=== PATIENT | male | born 1960 | race Caucasian/White ===

== ENCOUNTER → 2016-10-20 | Outpatient (CLI) | payer OTHER ==
[2016-10-20 17:58] LABS: Basophils # (A) 0.1 k/uL (0-0.2); Basophils % (A) 1 %; CH 28.8; CHCM 32.8; Eosinophils # (A) 0.2 k/uL (0-0.7); Eosinophils % (A) 3 %; HCT 40.8 % (39.0-53.0); HDW 2.67; HGB 13.5 gm/dL (13.0-17.5); Luc # (Auto) 0.16; Luc % (Auto) 2; Lymphocytes # (A) 1.9 k/uL (1.0-4.8); Lymphocytes % (A) 25 %; MCH 29.3 pg (25.0-35.0); MCHC 33.2 g/dL (31.0-37.0); MCV 88.3 fL (80.0-100.0); Mean Platelet Volume 7.3; Monocytes # (A) 0.4 k/uL (0-1.0); Monocytes % (A) 6 %; Neutrophils # (A) 4.7 k/uL (1.3-7.7); Neutrophils % (A) 63 %; RBC 4.62 m/uL (4.30-5.90); RDW 13.6 % (11.5-15.5); WBC 7.4 k/uL (3.8-10.6); WBC (Perox) 7.74
[2016-10-20 18:03] LABS: Amorphous Sediment,Urine Rare /hpf; Appearance,Urine Cloudy (Clear); Bilirubin,Urine Negative (Negative); Glucose,Urine (UA) Negative (Negative); Ketones,Urine Negative (Negative); Leukocyte Esterase,Urine Trace (Negative); Mucus,Urine Rare /hpf; Nitrite,Urine Negative (Negative); PH, Urine 5.5 (5.0-8.0); Particle Count 2562; Protein,Urine Trace (Negative); RBC,Urine 49 /hpf (0-5); Specific Gravity,Urine 1.018 (1.001-1.035); Squamous Epithelial Cell,Urine 2 /hpf (0-4); UA Billing (MACRO vs. MICRO) MICRO; WBC,Urine 9 /hpf (0-5)
--- NOTE | 2016-10-20 18:09 | XR ---
EXAMINATION TYPE: XR chest 2V DATE OF EXAM: 10/20/2016 5:59 PM COMPARISON: 04/22/2016 HISTORY: Preop chest x-ray TECHNIQUE: Frontal and lateral views of the chest are obtained. FINDINGS: There is no heart failure nor confluent pneumonic infiltrate. There are no hilar masses. C ostophrenic angles are clear. Bony thorax is intact. IMPRESSION: No active cardiopulmonary disease. No change.
[2016-10-20 18:22] LABS: Anion Gap 7 mmol/L; Blood Urea Nitrogen 20 mg/dL (9-20); Calcium 9.5 mg/dL (8.4-10.2); Carbon Dioxide 29 mmol/L (22-30); Chloride 104 mmol/L (98-107); Glucose 123 mg/dL (74-99); Non-African American GFR(MDRD) >60 (>60 ml/min/1.73 sqM); Potassium 4.2 mmol/L (3.5-5.1); Sodium 140 mmol/L (137-145)
== END | disposition home or self-care (01) ==
LOC: LABPAT 17:12
PROVIDERS: ATTEND Urology
DX: Z01.818 Encounter for other preprocedural examination (principal); Z01.812 Encounter for preprocedural laboratory examination; Z79.899 Other long term (current) drug therapy; N20.0 Calculus of kidney; R35.0 Frequency of micturition; I50.9 Heart failure, unspecified
CPT/HCPCS: 71020; 80048; 81001; 85025; 87086

== ENCOUNTER 2016-10-27 05:57 | Observation (INO) | payer OTHER ==
[2016-10-25 10:18] VITALS: BMI 37.2
[~2016-10-27 05:57] MED LIST: DEXAMETHASONE SOD PHOSPHATE 10 MG/ML 1 ML VIAL IV ONE; MIDAZOLAM 2 MG/2 ML VIAL IV PRN; SCOPOLAMINE 1.5MG/72HR PATCH TRANSDERM ONE; ceFAZolin 2 GM in SODIUM CHLORIDE 0.9% 100 ML IVPB ONE
[2016-10-27 06:42] VITALS: RESP 16
[2016-10-27] MEDS ORDERED: LIDOCAINE 1% 20 ML VIAL (10MG/ML) FOR IV START INTRADERMA ONE (06:52)
[2016-10-27] MEDS: LACTATED RINGERS 1,000 ML IV SCH (06:52)
[2016-10-27] MEDS: ONDANSETRON 4 MG/2 ML VIAL IVP ONE ×2 (06:55→10:09)
[2016-10-27 06:57] LABS: Glucose,Whole Blood 146 mg/dL (75-99)
[2016-10-27] MEDS ORDERED: fentaNYL (PF) 50 MCG/ML 2 ML AMP ONE (07:25)
[2016-10-27] MEDS ORDERED: MIDAZOLAM 2 MG/2 ML VIAL ONE (07:25)
[2016-10-27] MEDS ORDERED: SUCCINYLCHOLINE CHLORIDE 100 MG/5 ML SYR IV ONE (07:25)
[2016-10-27] MEDS ORDERED: ROCURONIUM BROMIDE 10 MG/ML 10 ML VIAL IV ONE (07:25)
[2016-10-27] MEDS ORDERED: NEOSTIGMINE 1 MG/ML 10 ML VIAL ONE (07:25)
[2016-10-27] MEDS ORDERED: LIDOCAINE 1% INJ 10MG/ML (20 ML MDV) ONE (07:25)
[2016-10-27] MEDS ORDERED: SODIUM CHLORIDE 0.9% 50 ML with ceFAZolin 2,000 MG IV ONE ×2 (07:25)
[2016-10-27] MEDS ORDERED: PROPOFOL 10 MG/ML 20 ML VIAL IV ONE (07:25)
[2016-10-27] MEDS ORDERED: GLYCOPYRROLATE 0.2 MG/ML 2 ML VIAL ONE (07:25)
--- NOTE | 2016-10-27 07:27 | XR ---
EXAMINATION TYPE: XR KUB DATE OF EXAM: 10/27/2016 6:31 AM COMPARISON: 07/10/2016 INDICATION: Presurgical evaluation TECHNIQUE: Single view abdomen supine FINDINGS: There is a nonspecific bowel gas pattern. Abundant bowel gas through the transverse colon. Psoas margins are normal. No organomegaly is present. There is a 1.4 x 2.1 cm calcification over the right renal pelvic region. Left hip prosthesis present . Surgical clip may be within the pelvis. Cholecystectomy clips are present. IMPRESSION: 1. 1.4 x 2.1 cm calcification in the region of the right renal pelvis.
[2016-10-27] MEDS ORDERED: IOHEXOL 350 MG/ML 50ML BOTTLE IRRIGATION ONE (08:07)
[2016-10-27] MEDS ORDERED: LACTATED RINGERS 1,000 ML IV ONE (09:23)
--- NOTE | 2016-10-27 09:39 | FL ---
EXAMINATION TYPE: FL Perc Nephrostomy New Access DATE OF EXAM: 10/27/2016 9:35 AM COMPARISON: NONE HISTORY: Right renal stone Procedure had been discussed with the patient by Dr. López, risks, benefits, alternatives, were dis cussed and any questions were answered. Informed consent was obtained. The patient was in a semipro ne position prepped and draped on the OR table in the usual sterile fashion. Utilizing a 15 cm lengt h Chiba needle a single pass was made into a lower pole posterior calyx under fluoroscopic guidance. An 0.018 guidewire is passed through the needle and there was placement of a 6-Scottish catheter sheat h system. There was conversion to a 0.035 system was performed with passage of a guidewire into the ureter utilizing a directional catheter. A second safety wire was placed. Remaining portion of pro cedure performed by . Approximately 11 minutes and 36 of fluoroscopy was provided. IMPRESSION: 1. Successful intraoperative right nephrostomy prior to nephrolithotomy.
[2016-10-27] MEDS ORDERED: ALBUTEROL NEBULIZED 2.5 MG/3 ML INHALATION PRN (09:43)
[2016-10-27] MEDS ORDERED: ACETAMINOPHEN TAB 325 MG TAB PO PRN (09:43)
[2016-10-27] MEDS ORDERED: MAG HYDROX/AL HYDROX/SIMETH 30 ML CUP PO PRN (09:43)
[2016-10-27] MEDS ORDERED: NALOXONE 0.4 MG/ML 1 ML VIAL IV PRN (09:45)
[2016-10-27] MEDS ORDERED: HYDROmorphone PCA 5 MG/25 ML SYRINGE IV PRN (09:45)
[2016-10-27] MEDS ORDERED: ONDANSETRON 4 MG/2 ML VIAL IVP PRN (09:45)
[2016-10-27] MEDS ORDERED: diphenhydrAMINE 50 MG/ML 1 ML VIAL IVP PRN (09:45)
--- NOTE | 2016-10-27 09:52 | P.OP ---
Date of Procedure: 10/27/16 Preoperative Diagnosis: Renal stone large Postoperative Diagnosis: Same Procedure(s) Performed: Cystoscopy, placement of 5-Congolese occluding balloon catheter, percutaneous nephrostomy (Dr. wilson ) per cutaneous nephrostolithotomy with laser lithotripsy, placement of 12-Congolese J nephrostomy Anesthesia: BETTY Surgeon: Claude López Estimated Blood Loss (ml): 200 Pathology: other (Stones) Condition: stable Disposition: PACU Indications for Procedure: The patient is a 56-year-old gentleman with active kidney stone disease who has a 2.1 x 1.4 cm right lower pole calyceal stone causing pain he comes for percutaneous nephrostolithotomy Description of Procedure: The patient is brought to the operating suite and on the transport gurney placed in a frog position. He is given a successful general endotracheal anesthesia. He is prepped and draped sterilely. Cystoscopy of the Foroblique lens and 22-Congolese sheath identifies a normal anterior urethra and a high riding bladder neck. Upon entering the bladder the right ureteral orifice is identified and intubated with a 5-Congolese occluding balloon catheter. It is secured to a 16-Congolese coud-tip catheter. The patient is placed in a prone position with care to airways and extremities. Dr. Wilson of radiology performed percutaneous access to the right lower pole calyx. We dilate the tract to 30-Congolese. The infundibulum was scarred and tight. I'm unable to advance the rigid scope into identify the lower pole calyceal stone. I have to advance the sheath to the parenchyma the kidney and then pass a flexible nephroscope into the collecting system. I'm able to see the stone. With the 365 laser probe I break the stone into tiny fragments and then I basket them with a 1.9-Congolese stone basket. At the end of the procedure I looked throughout the collecting system and see no remaining stones. There is no stones on fluoroscopy. A 12-Congolese J nephrostomy tube was placed over the working wire and secured into the renal pelvis. It is secured with 2-0 silk. he is awake and returned recovery room good condition. He tolerated procedure well. Blood loss is approximately 200 mL.
[2016-10-27 09:58] LABS: Glucose,Whole Blood 177 mg/dL (75-99)
[2016-10-27] MEDS: HYDROmorphone 1 MG/ML 1 ML SYRINGE IVP PRN ×4 (10:01→10:27)
[2016-10-27] MEDS ORDERED: FAMOTIDINE 20 MG/2 ML VIAL IVP ONE ×2 (10:24)
[2016-10-27] MEDS: SODIUM CHLORIDE 0.45% 1,000 ML IV SCH ×2 (11:26→21:30)
[2016-10-27 11:42] LABS: Glucose,Whole Blood 188 mg/dL (75-99)
[2016-10-27] MEDS: KETOROLAC 30 MG/ML 1 ML VIAL IVP SCH ×3 (12:44→23:34)
[2016-10-27] MEDS: INSULIN LISPRO (humaLOG) 300 UNIT/3 ML VIAL SQ SCH ×3 (12:44→21:24)
[2016-10-27 20:01] LABS: Glucose,Whole Blood 170 mg/dL (75-99)
[2016-10-27] MEDS: FUROSEMIDE 40 MG TAB PO SCH (21:19)
[2016-10-28 02:11] VITALS: BP 129/64; PULSE 68; TEMP 98.1
[2016-10-28] MEDS: LACTATED RINGERS 1,000 ML IV SCH (03:58)
[2016-10-28] MEDS: KETOROLAC 30 MG/ML 1 ML VIAL IVP SCH (06:28)
[2016-10-28] MEDS: SODIUM CHLORIDE 0.45% 1,000 ML IV SCH (06:28)
--- NOTE | 2016-10-28 06:42 | P.DS ---
Providers Date of admission: 10/27/16 13:36 Attending physician: Claude López Primary care physician: Abel Guzmán Hospital Course: The patient was admitted 10/27/2016 for a right percutaneous nephrostolithotomy. He underwent this without any issues. Postoperatively he tolerated his diet and ambulated. His urine is clearing appropriately. He is having minimal discomfort. He'll be discharged home today. He'll go home with a nephrostomy tube and follow-up in the office on Tuesday for nephrostomy tube removal. He'll resume all his home medications except his Ellik was which she will hold until I removed the tube. Postoperative instructions of been given diet is regular, activities Limited ,condition is good. Patient Condition at Discharge: Good Plan - Discharge Summary Discharge Medication List metFORMIN HCL [Glucophage] 500 mg PO DAILY 06/25/14 [History] Albuterol Sulfate [Ventolin HFA] 2 puff INHALATION RT-Q6H PRN 07/10/14 [History] Apixaban [Eliquis] 5 mg PO BID tab 03/30/16 [Rx] Pantoprazole [Protonix] 40 mg PO AC-BRKFST #30 tablet. 03/30/16 [Rx] Calcium Carbonate [Calcium] 600 mg PO BID #60 tablet 04/08/16 [Rx] Multivitamin/Iron/Folic Acid [Centrum Complete Multivit Tab] 1 tab PO DAILY 12/17 [History] Vitamin A 8,000 unit PO DAILY #30 capsule 04/08/16 [Rx] Furosemide [Lasix] 40 mg PO BID 10/25/16 [History] Metoprolol Tartrate [Lopressor] 12.5 mg PO DAILY 10/25/16 [History] Follow up Appointment(s)/Referral(s): Claude López MD [STAFF PHYSICIAN] - 11/01/16 Activity/Diet/Wound Care/Special Instructions: The patient may shower, cover the dressing with plastic wrap or change the dressing. Hold Eliquis until I see him in the office.
[2016-10-28] MEDS ORDERED: metFORMIN 500 MG TAB PO SCH (07:30)
[2016-10-28] MEDS ORDERED: PANTOPRAZOLE 40 MG TABLET PO SCH (07:30)
[2016-10-28 07:33] LABS: Glucose,Whole Blood 152 mg/dL (75-99)
[2016-10-28] MEDS: INSULIN LISPRO (humaLOG) 300 UNIT/3 ML VIAL SQ SCH (07:49)
[2016-10-28] MEDS: FUROSEMIDE 40 MG TAB PO SCH (07:50)
[2016-10-28] MEDS ORDERED: METOPROLOL TARTRATE 12.5 MG TAB PO SCH (09:00)
[2016-10-28 13:10] LABS: Hemoglobin A1C 6.9 % (4.2-6.1)
== END 2016-10-28 11:05 | disposition home or self-care (01) ==
LOC: OR 05:57 → 3SUR 09:26 → OR 13:38
PROVIDERS: ADMIT Urology; ATTEND Urology
DX: N20.0 Calculus of kidney (principal); I48.91 Unspecified atrial fibrillation; I50.9 Heart failure, unspecified; F41.9 Anxiety disorder, unspecified; F17.210 Nicotine dependence, cigarettes, uncomplicated; Z83.3 Family history of diabetes mellitus; Z82.49 Family history of ischemic heart disease and other diseases of the circulatory system; Z90.49 Acquired absence of other specified parts of digestive tract; Z88.6 Allergy status to analgesic agent; Z79.84 Long term (current) use of oral hypoglycemic drugs; Z87.440 Personal history of urinary (tract) infections; Z79.899 Other long term (current) drug therapy; Z79.01 Long term (current) use of anticoagulants; Z98.84 Bariatric surgery status; Z88.8 Allergy status to other drugs, medicaments and biological substances; Z96.642 Presence of left artificial hip joint; E11.9 Type 2 diabetes mellitus without complications; K21.9 Gastro-esophageal reflux disease without esophagitis
CPT/HCPCS: 50080; 50395; 86900; 86901; 83036; 86850; 82365; 74000; 50432; G0378 ×2; C1769 ×4; C2628; C1894; C1729; J2250; J1100; J2710; J2405; J2001; J3010; J1885 ×2; J1170 ×2; J0690; J0330; J2704; Q9967; 96361; 96376

== ENCOUNTER → 2017-07-20 | Outpatient (CLI) | payer OTHER ==
[2017-07-20 15:08] VITALS: BP 147/67; PULSE 46; TEMP 98.6; BMI 41.5
== END ==
LOC: BARWHC3 14:16
PROVIDERS: ATTEND Surgery Plastic and Reconstructive Surgery
DX: E66.01 Morbid (severe) obesity due to excess calories (principal); E21.1 Secondary hyperparathyroidism, not elsewhere classified; D50.9 Iron deficiency anemia, unspecified; E44.0 Moderate protein-calorie malnutrition; E55.9 Vitamin D deficiency, unspecified; K74.1 Hepatic sclerosis; N19 Unspecified kidney failure; K50.90 Crohn's disease, unspecified, without complications
CPT/HCPCS: 97802; 99211

== ENCOUNTER 2019-08-21 05:52 | Inpatient (IN) | payer OTHER ==
[2019-08-21] MEDS ORDERED: SODIUM CHLORIDE 0.9% 1,000 ML IV STA (05:58)
--- NOTE | 2019-08-21 06:21 | ED ---
GI Bleed HPI - General Chief complaint: GI Bleed Stated complaint: GI Bleed Time Seen by Provider: 08/21/19 05:58 Source: patient, EMS, RN notes reviewed Mode of arrival: EMS Limitations: no limitations - History of Present Illness Initial comments: Taylor is a pleasant 59-year-old gentleman with history of A. fib for which he is on L Lena. Patient presents the emergency department this morning as a transfer from outside facility where he was evaluated for possible upper GI bleed. Patient reported dark stools, epigastric discomfort nausea without vomiting. Evaluation of thousand facility found the patient had guaiac positive melanotic stools, hemoglobin of 10.5 and was positive for orthostatic hypotension. Outside facility to have gastroenterology available for evaluation if her patient was transferred to our facility for further management. Patient remained hemodynamically stable throughout transfer. Upon arrival patient denies any complaints. Patient specifically denies any chest pain palpitations or shortness breath. He does report feeling lightheaded when he stood up at the outside hospital but feeling well resting. - Related Data Home Medications Medication Instructions Recorded Confirmed metFORMIN HCL [Glucophage] 500 mg PO DAILY 06/25/14 07/20/17 Albuterol Sulfate [Ventolin HFA] 2 puff INHALATION RT-Q6H PRN 07/10/14 07/20/17 Multivitamin/Iron/Folic Acid 1 tab PO DAILY 04/08/16 07/20/17 [Centrum Complete Multivit Tab] Furosemide [Lasix] 40 mg PO BID 10/25/16 07/20/17 Previous Rx's Medication Instructions Recorded Apixaban [Eliquis] 5 mg PO BID tab 03/30/16 Pantoprazole [Protonix] 40 mg PO AC-BRKFST #30 tablet.dr 03/30/16 Acetaminophen Tab [Tylenol] 650 mg PO Q6HR PRN tab 06/21/17 Aspirin 81 mg PO DAILY chew 06/21/17 Cyanocobalamin (Vitamin B-12) 1,000 mcg PO DAILY #30 tablet 06/21/17 [Vitamin B-12] Diltiazem Oral [Cardizem*] 60 mg PO TID #90 tab 06/21/17 Ergocalciferol [Vitamin D2 50,000 unit PO Q7D cap 06/21/17 (DRISDOL)] Ferrous Sulfate [Feosol] 325 mg PO DAILY #30 tab 06/21/17 Metoprolol Tartrate [Lopressor] 25 mg PO BID #60 tab 06/21/17 Vitamin A 8,000 unit PO DAILY #30 capsule 07/20/17 Zinc Gluconate [Zinc] 50 mg PO DAILY@1200 #60 tablet 07/20/17 Allergies Allergy/AdvReac Type Severity Reaction Status Date / Time lisinopril Allergy Unknown Dyspnea Verified 07/20/17 14:59 rofecoxib [From Vioxx] Allergy Unknown Dyspnea Verified 07/20/17 14:59 celecoxib [From Celebrex] Allergy Dyspnea Verified 07/20/17 14:59 POTASSIUM CITRATE Allergy Unknown Uncoded 07/20/17 14:59 Review of Systems ROS Statement: Those systems with pertinent positive or pertinent negative responses have been documented in the HPI. ROS Other: All systems not noted in ROS Statement are negative. Past Medical History Past Medical History: Atrial Fibrillation, Asthma, Heart Failure, COPD, Diabetes Mellitus, Pneumonia, Sleep Apnea/CPAP/BIPAP Additional Past Medical History / Comment(s): Gastric bypass surgery more than 10 years ago with significant weight loss, chronic bronchial asthma, COPD, diabetes mellitus type 2, chronic atrial fibrillation, ALLERGIC urticaria, obesity, nephrolithiasis, degenerative arthritis, hypertension, chronic microcytic anemia, degenerative arthritis, CHF History of Any Multi-Drug Resistant Organisms: None Reported Past Surgical History: Bariatric Surgery, Cholecystectomy, Hernia Repair, Joint Replacement Additional Past Surgical History / Comment(s): UPPP, gastric bypass surgery, cholecystectomy, umbilical hernia repair, left total hip replacement, left shoulder surgery. Past Anesthesia/Blood Transfusion Reactions: Previous Problems w/ Anesthesia Additional Past Anesthesia/Blood Transfusion Reaction / Comment(s): STATES DIFFICULTY WAKING UP "THEY OVERDOSED ME." Past Psychological History: No Psychological Hx Reported Smoking Status: Never smoker Past Alcohol Use History: None Reported Past Drug Use History: None Reported - Past Family History Mother Family Medical History: No Reported History General Exam - General Exam Comments Initial Comments: Physical Exam GENERAL: Patient is well-developed and well-nourished. Patient is nontoxic and well- hydrated and is in no distress. HENT: Normocephalic, Atraumatic. EYES: PERRL, EOMI No conjunctival pallor PULMONARY: Unlabored respirations. No audible rales rhonchi or wheezing was noted. CARDIOVASCULAR: There is a regular rate and rhythm without any murmurs gallops or rubs. ABDOMEN: Soft and nontender with normal bowel sounds. SKIN: Skin is clear with no lesions or rashes and otherwise unremarkable. Mild pallor : Deferred NEUROLOGIC: Patient is alert and oriented x3. Moving all extremities spontaneously MUSCULOSKELETAL: Normal extremities with adequate strength and full range of motion. No lower extremity swelling or edema. No calf tenderness. PSYCHIATRIC: Normal psychiatric evaluation. Limitations: no limitations Course Vital Signs 08/21/19 05:57 Temperature 99.4 F Pulse Rate 92 Respiratory 18 Rate Blood Pressure 116/100 O2 Sat by Pulse 99 Oximetry Medical Decision Making - Medical Decision Making Patient was seen and evaluated, history was obtained from the patient and transferring physician History and physical exam relatively unremarkable Repeat labs were obtained Initial hemoglobin outside facilities 10.5, hemoglobin is 10.1 here Patient's hemodynamically stable Patient has previously had endoscopy by Dr. Collier for evaluation of possible ulcers 3 years ago that endoscopy was negative Patient care was discussed with Dr. Meza who accepts admission with consult to Dr Castanon for endoscopy - Lab Data Result diagrams: 08/21/19 06:26 08/21/19 06:26 Lab Results 08/21/19 08/21/19 08/21/19 Range/Units 06:26 06:26 06:26 WBC 10.8 H (3.8-10.6) k/uL RBC 3.71 L (4.30-5.90) m/uL Hgb 10.1 L (13.0-17.5) gm/dL Hct 30.5 L (39.0-53.0) % MCV 82.2 (80.0-100.0) fL MCH 27.3 (25.0-35.0) pg MCHC 33.2 (31.0-37.0) g/dL RDW 14.8 (11.5-15.5) % Plt Count 315 (150-450) k/uL Neutrophils % 63 % Lymphocytes % 27 % Monocytes % 5 % Eosinophils % 3 % Basophils % 1 % Neutrophils # 6.8 (1.3-7.7) k/uL Lymphocytes # 2.9 (1.0-4.8) k/uL Monocytes # 0.5 (0-1.0) k/uL Eosinophils # 0.3 (0-0.7) k/uL Basophils # 0.1 (0-0.2) k/uL APTT (22.0-30.0) sec Sodium 134 L (137-145) mmol/L Potassium 4.6 (3.5-5.1) mmol/L Chloride 102 (98-107) mmol/L Carbon Dioxide 27 (22-30) mmol/L Anion Gap 5 mmol/L BUN 48 H (9-20) mg/dL Creatinine 0.70 (0.66-1.25) mg/dL Est GFR (CKD-EPI)AfAm >90 (>60 ml/min/1.73 sqM) Est GFR (CKD-EPI)NonAf >90 (>60 ml/min/1.73 sqM) Glucose 223 H (74-99) mg/dL Plasma Lactic Acid Bob 1.2 (0.7-2.0) mmol/L Calcium 8.7 (8.4-10.2) mg/dL Total Bilirubin 0.5 (0.2-1.3) mg/dL AST 26 (17-59) U/L ALT 28 (4-49) U/L Alkaline Phosphatase 93 (38-126) U/L Troponin I (0.000-0.034) ng/mL Total Protein 5.6 L (6.3-8.2) g/dL Albumin 3.2 L (3.5-5.0) g/dL Blood Type Blood Type Recheck Bld Type Recheck Status Antibody Screen Spec Expiration Date 08/21/19 08/21/19 08/21/19 Range/Units 06:26 06:26 06:26 WBC (3.8-10.6) k/uL RBC (4.30-5.90) m/uL Hgb (13.0-17.5) gm/dL Hct (39.0-53.0) % MCV (80.0-100.0) fL MCH (25.0-35.0) pg MCHC (31.0-37.0) g/dL RDW (11.5-15.5) % Plt Count (150-450) k/uL Neutrophils % % Lymphocytes % % Monocytes % % Eosinophils % % Basophils % % Neutrophils # (1.3-7.7) k/uL Lymphocytes # (1.0-4.8) k/uL Monocytes # (0-1.0) k/uL Eosinophils # (0-0.7) k/uL Basophils # (0-0.2) k/uL APTT 22.6 (22.0-30.0) sec Sodium (137-145) mmol/L Potassium (3.5-5.1) mmol/L Chloride (98-107) mmol/L Carbon Dioxide (22-30) mmol/L Anion Gap mmol/L BUN (9-20) mg/dL Creatinine (0.66-1.25) mg/dL Est GFR (CKD-EPI)AfAm (>60 ml/min/1.73 sqM) Est GFR (CKD-EPI)NonAf (>60 ml/min/1.73 sqM) Glucose (74-99) mg/dL Plasma Lactic Acid Bob (0.7-2.0) mmol/L Calcium (8.4-10.2) mg/dL Total Bilirubin (0.2-1.3) mg/dL AST (17-59) U/L ALT (4-49) U/L Alkaline Phosphatase (38-126) U/L Troponin I <0.012 (0.000-0.034) ng/mL Total Protein (6.3-8.2) g/dL Albumin (3.5-5.0) g/dL Blood Type A Positive Blood Type Recheck A Pos Bld Type Recheck Status No Antibody Screen NEGATIVE Spec Expiration Date 08/24/2019 - 4665 - EKG Data -: EKG Interpreted by Al EKG Comments: EKG was obtained due to complaint of anemia and history of atrial fibrillation, EKG was obtained at 5:59 AM, rate is 91 rhythm is narrow complex irregular but there is T-wave before each QRS, consistent with sinus rhythm with marked sinus arrhythmia. Normal axis normal intervals, WI 124, QRS 74, QTC [address] elevations or depressions no evidence of acute ischemia or infarction. Disposition Clinical Impression: Melena, Atrial fibrillation Disposition: ADMITTED IP TO THIS HOSP Condition: Serious Referrals: Malcolm Menjivar MD [Primary Care Provider] - 1-2 days
[2019-08-21 06:39] LABS: Basophils # (A) 0.1 k/uL (0-0.2); Basophils % (A) 1 %; Eosinophils # (A) 0.3 k/uL (0-0.7); Eosinophils % (A) 3 %; HCT 30.5 % (39.0-53.0); HGB 10.1 gm/dL (13.0-17.5); Lymphocytes # (A) 2.9 k/uL (1.0-4.8); Lymphocytes % (A) 27 %; MCH 27.3 pg (25.0-35.0); MCHC 33.2 g/dL (31.0-37.0); MCV 82.2 fL (80.0-100.0); Mean Platelet Volume 8.2; Monocytes # (A) 0.5 k/uL (0-1.0); Monocytes % (A) 5 %; Neutrophils # (A) 6.8 k/uL (1.3-7.7); Neutrophils % (A) 63 %; Platelet Count 315 k/uL (150-450); RBC 3.71 m/uL (4.30-5.90); RDW 14.8 % (11.5-15.5); WBC 10.8 k/uL (3.8-10.6)
[2019-08-21 06:51] LABS: ALT 28 U/L (4-49); AST 26 U/L (17-59); African American GFR (CKD) >90 (>60 ml/min/1.73 sqM); Albumin 3.2 g/dL (3.5-5.0); Alkaline Phosphatase 93 U/L (38-126); Anion Gap 5 mmol/L; Blood Urea Nitrogen 48 mg/dL (9-20); Calcium 8.7 mg/dL (8.4-10.2); Carbon Dioxide 27 mmol/L (22-30); Chloride 102 mmol/L (98-107); Glucose 223 mg/dL (74-99); Non-African American GFR(CKD) >90 (>60 ml/min/1.73 sqM); Potassium 4.6 mmol/L (3.5-5.1); Sodium 134 mmol/L (137-145); Total Bilirubin 0.5 mg/dL (0.2-1.3); Total Protein 5.6 g/dL (6.3-8.2)
[2019-08-21] MEDS ORDERED: NALOXONE 0.4 MG/ML 1 ML VIAL IV PRN (07:58)
[2019-08-21] MEDS ORDERED: SODIUM CHLORIDE 0.9% 1,000 ML IV SCH (08:00)
[2019-08-21] MEDS ORDERED: MORPHINE SULFATE 4 MG/ML SYRINGE IVP PRN (09:12)
[2019-08-21 09:31] LABS: Prothrombin Time 10.2 sec (9.0-12.0)
[2019-08-21 09:53] LABS: HCT 30.2 % (39.0-53.0); HGB 10.1 gm/dL (13.0-17.5); MCH 27.3 pg (25.0-35.0); MCHC 33.5 g/dL (31.0-37.0); MCV 81.6 fL (80.0-100.0); Mean Platelet Volume 8.6; Platelet Count 239 k/uL (150-450); RBC 3.71 m/uL (4.30-5.90); RDW 14.9 % (11.5-15.5); WBC 11.3 k/uL (3.8-10.6)
--- NOTE | 2019-08-21 15:04 | P.GSCN ---
<Salome Ramires A - Last Filed: 08/21/19 15:04> History of Present Illness Consult date: 08/21/19 Reason for Consult: Upper GI bleed Requesting physician: Elizabeth Vargas History of present illness: CHIEF COMPLAINT: Upper GI bleed HISTORY OF PRESENT ILLNESS: 59-year-old male with history of Sharona-en-Y gastric bypass performed in a bariatric clinic in [place] in 2001. Patient is a history of anemia and underwent EGD in June [address] Castanon that did not reveal any acute gastrojejunal ulcererations. Patient is prescribed Eliquis for history of afib. He states he is no longer taking aspirin but does report taking naproxen on occasion. Patient reports having dark stools for the past couple days. Denies bright red blood. Denies nausea or vomiting. Denies abdominal pain. PAST MEDICAL HISTORY: See list. PAST SURGICAL HISTORY: See list. MEDICATIONS: See list. ALLERGIES: See list. SOCIAL HISTORY: No illicit drug use. REVIEW OF SYSTEMS: CONSTITUTIONAL: Denies fever or chills. HEENT: Denies blurred vision, vision changes, or eye pain. Denies hemoptysis ENDOCRINE: Denies heat or cold intolerance. CARDIOVASCULAR: Denies chest pain or pressure. Reports history of A. fib. RESPIRATORY: No shortness of breath. GASTROINTESTINAL: History of Sharona-en-Y gastric bypass. See HPI for pertinent findings. NEURO: Denies history of seizures. PSYCH: No depression or suicidal ideation HEMATOLOGIC: Denies bleeding disorders. Prescribed long-term anticoagulation with Eliquis. LYMPHATIC: The patient denies any lumps and bumps around the neck. GENITOURINARY: Denies any blood in urine or increased urinary frequency. MUSCULOSKELETAL: Denies myalgias. Denies joint swelling. Denies decreased range of motion beyond patients baseline. SKIN: Denies pruitis. Denies rash. PHYSICAL EXAM: VITAL SIGNS: Reviewed GENERAL: Well-developed in no acute distress. HEENT: No sclera icterus. Extraocular movements grossly intact. Moist buccal mucosa. Head is atraumatic, normocephalic. Hears conversational speech. No nasal drainage. NECK: Supple without lymphadenopathy. CHEST: Non-labored respirations and equal bilateral excursions. CARDIOVASCULAR: Regular rate with regular rhythm. Palpable 2+ radial pulses. ABDOMEN: Soft. Nondistended. Nontender. MUSCULOSKELETAL: No clubbing, cyanosis or edema. NEUROLOGIC: No focal or lateralizing signs. Cranial nerves II through XII grossly intact. PSYCH: Appropriate affect. Alert and oriented to person, place and time. SKIN: Well perfused. Good skin turgor. LABORATORY DATA: WBC 10.8. Hemoglobin 10.1. Platelet count 315. ASSESSMENT: 1. GI bleed 2. History of Sharona-en-Y gastric bypass 3. History of atrial fibrillation on long-term anticoagulation with Eliquis PLAN: -Clear liquid diet. NPO at midnight -Monitor hemoglobin -Hold Eliquis. SCDs for DVT prophylaxis -Protonix 40 mg IV BID -Patient to undergo EGD tomorrow with Dr. Castanon -Obtain bariatric labs Nurse practitioner note has been reviewed by physician. Signing provider agrees with the documented findings, assessment, and plan of care. Past Medical History Past Medical History: Atrial Fibrillation, Asthma, Heart Failure, COPD, Diabetes Mellitus, Pneumonia, Sleep Apnea/CPAP/BIPAP Additional Past Medical History / Comment(s): Gastric bypass surgery more than 10 years ago with significant weight loss, chronic bronchial asthma, COPD, diabetes mellitus type 2, chronic atrial fibrillation, ALLERGIC urticaria, obesity, nephrolithiasis, degenerative arthritis, hypertension, chronic microcytic anemia, degenerative arthritis, CHF History of Any Multi-Drug Resistant Organisms: None Reported Past Surgical History: Bariatric Surgery, Cholecystectomy, Hernia Repair, Joint Replacement Additional Past Surgical History / Comment(s): UPPP, gastric bypass surgery, cholecystectomy, umbilical hernia repair, left total hip replacement, left shoulder surgery. Past Anesthesia/Blood Transfusion Reactions: Previous Problems w/ Anesthesia Additional Past Anesthesia/Blood Transfusion Reaction / Comm: STATES DIFFICULTY WAKING UP "THEY OVERDOSED ME." Past Psychological History: No Psychological Hx Reported Smoking Status: Never smoker Past Alcohol Use History: None Reported Past Drug Use History: None Reported - Past Family History Mother Family Medical History: No Reported History Medications and Allergies Home Medications Medication Instructions Recorded Confirmed Type Albuterol Sulfate [Ventolin HFA] 2 puff INHALATION RT-Q6H PRN 07/10/14 08/21/19 History Apixaban [Eliquis] 5 mg PO BID tab 03/30/16 08/21/19 Rx Multivitamin/Iron/Folic Acid 1 tab PO DAILY 04/08/16 08/21/19 History [Centrum Complete Multivit Tab] Furosemide [Lasix] 40 mg PO BID 10/25/16 08/21/19 History Diltiazem Oral [Cardizem*] 60 mg PO TID #90 tab 06/21/17 08/21/19 Rx Ferrous Sulfate [Feosol] 325 mg PO DAILY #30 tab 06/21/17 08/21/19 Rx Vitamin A 8,000 unit PO DAILY #30 capsule 07/20/17 08/21/19 Rx Ascorbic Acid [Vitamin C with Ivy 500 mg PO BID 08/21/19 08/21/19 History Hips] Calcium Carbonate/Vitamin D3 1 tab PO BID 08/21/19 08/21/19 History [Calcium 600-Vit D3 200 Tablet] Cyclobenzaprine [Flexeril] 10 mg PO TID 08/21/19 08/21/19 History Metolazone [Zaroxolyn] 2.5 mg PO Q48H 08/21/19 08/21/19 History Metoprolol Tartrate [Lopressor] 12.5 mg PO BID 08/21/19 08/21/19 History Nascobal 1 spray NASAL FR 08/21/19 08/21/19 History Omeprazole [PriLOSEC] 20 mg PO AC-BID 08/21/19 08/21/19 History Zinc Gluconate [Zinc] 50 mg PO DAILY 08/21/19 08/21/19 History glipiZIDE [Glucotrol] 5 mg PO AC-BID 08/21/19 08/21/19 History metFORMIN HCL 1,000 mg PO BID 08/21/19 08/21/19 History Allergies Allergy/AdvReac Type Severity Reaction Status Date / Time lisinopril Allergy Unknown Dyspnea Verified 08/21/19 09:11 rofecoxib [From Vioxx] Allergy Unknown Dyspnea Verified 08/21/19 09:11 celecoxib [From Celebrex] Allergy Dyspnea Verified 08/21/19 09:11 POTASSIUM CITRATE Allergy Unknown Uncoded 08/21/19 09:11 Surgical - Exam Vital Signs Temp Pulse Resp BP Pulse Ox 99.4 F 92 18 116/100 99 08/21/19 05:57 08/21/19 05:57 08/21/19 05:57 08/21/19 05:57 08/21/19 05:57 Results - Labs 08/21/19 09:35 08/21/19 06:26 Abnormal Lab Results - Last 24 Hours (Table) 08/21/19 08/21/19 08/21/19 Range/Units 06:26 06:26 09:35 WBC 10.8 H 11.3 H (3.8-10.6) k/uL RBC 3.71 L 3.71 L (4.30-5.90) m/uL Hgb 10.1 L 10.1 L (13.0-17.5) gm/dL Hct 30.5 L 30.2 L (39.0-53.0) % Sodium 134 L (137-145) mmol/L BUN 48 H (9-20) mg/dL Glucose 223 H (74-99) mg/dL Total Protein 5.6 L (6.3-8.2) g/dL Albumin 3.2 L (3.5-5.0) g/dL Diabetes panel 08/21/19 Range/Units 06:26 Sodium 134 L (137-145) mmol/L Potassium 4.6 (3.5-5.1) mmol/L Chloride 102 (98-107) mmol/L Carbon Dioxide 27 (22-30) mmol/L BUN 48 H (9-20) mg/dL Creatinine 0.70 (0.66-1.25) mg/dL Glucose 223 H (74-99) mg/dL Calcium 8.7 (8.4-10.2) mg/dL AST 26 (17-59) U/L ALT 28 (4-49) U/L Alkaline Phosphatase 93 (38-126) U/L Total Protein 5.6 L (6.3-8.2) g/dL Albumin 3.2 L (3.5-5.0) g/dL Calcium panel 08/21/19 Range/Units 06:26 Calcium 8.7 (8.4-10.2) mg/dL Albumin 3.2 L (3.5-5.0) g/dL Pituitary panel 08/21/19 Range/Units 06:26 Sodium 134 L (137-145) mmol/L Potassium 4.6 (3.5-5.1) mmol/L Chloride 102 (98-107) mmol/L Carbon Dioxide 27 (22-30) mmol/L BUN 48 H (9-20) mg/dL Creatinine 0.70 (0.66-1.25) mg/dL Glucose 223 H (74-99) mg/dL Calcium 8.7 (8.4-10.2) mg/dL Adrenal panel 08/21/19 Range/Units 06:26 Sodium 134 L (137-145) mmol/L Potassium 4.6 (3.5-5.1) mmol/L Chloride 102 (98-107) mmol/L Carbon Dioxide 27 (22-30) mmol/L BUN 48 H (9-20) mg/dL Creatinine 0.70 (0.66-1.25) mg/dL Glucose 223 H (74-99) mg/dL Calcium 8.7 (8.4-10.2) mg/dL Total Bilirubin 0.5 (0.2-1.3) mg/dL AST 26 (17-59) U/L ALT 28 (4-49) U/L Alkaline Phosphatase 93 (38-126) U/L Total Protein 5.6 L (6.3-8.2) g/dL Albumin 3.2 L (3.5-5.0) g/dL <Shawanda Castanon N - Last Filed: 08/21/19 21:26> History of Present Illness History of present illness: Patient family confirms taking NSAIDs such as Aleve at home. Clinical history highly suspicious for gastric ulcer. Will proceed with upper endoscopy. Surgical - Exam Vital Signs Temp Pulse Resp BP Pulse Ox 99.4 F 92 18 116/100 99 08/21/19 05:57 08/21/19 05:57 08/21/19 05:57 08/21/19 05:57 08/21/19 05:57 Results - Labs 08/21/19 16:46 08/21/19 06:26 Abnormal Lab Results - Last 24 Hours (Table) 08/21/19 08/21/19 08/21/19 Range/Units 06:25 06:26 06:26 WBC 10.8 H (3.8-10.6) k/uL RBC 3.71 L (4.30-5.90) m/uL Hgb 10.1 L (13.0-17.5) gm/dL Hct 30.5 L (39.0-53.0) % Sodium 134 L (137-145) mmol/L BUN 48 H (9-20) mg/dL Glucose 223 H (74-99) mg/dL POC Glucose (mg/dL) (75-99) mg/dL Total Protein 5.6 L (6.3-8.2) g/dL Albumin 3.2 L (3.5-5.0) g/dL HDL Cholesterol 34 L (40-60) mg/dL 08/21/19 08/21/19 08/21/19 Range/Units 09:35 16:46 20:15 WBC 11.3 H (3.8-10.6) k/uL RBC 3.71 L 3.35 L (4.30-5.90) m/uL Hgb 10.1 L 9.2 L (13.0-17.5) gm/dL Hct 30.2 L 27.7 L (39.0-53.0) % Sodium (137-145) mmol/L BUN (9-20) mg/dL Glucose (74-99) mg/dL POC Glucose (mg/dL) 214 H (75-99) mg/dL Total Protein (6.3-8.2) g/dL Albumin (3.5-5.0) g/dL HDL Cholesterol (40-60) mg/dL Diabetes panel 08/21/19 08/21/19 Range/Units 06:25 06:26 Sodium 134 L (137-145) mmol/L Potassium 4.6 (3.5-5.1) mmol/L Chloride 102 (98-107) mmol/L Carbon Dioxide 27 (22-30) mmol/L BUN 48 H (9-20) mg/dL Creatinine 0.70 (0.66-1.25) mg/dL Glucose 223 H (74-99) mg/dL Calcium 8.7 (8.4-10.2) mg/dL AST 26 (17-59) U/L ALT 28 (4-49) U/L Alkaline Phosphatase 93 (38-126) U/L Total Protein 5.6 L (6.3-8.2) g/dL Albumin 3.2 L (3.5-5.0) g/dL Triglycerides 140 (<150) mg/dL HDL Cholesterol 34 L (40-60) mg/dL Thyroid panel 08/21/19 Range/Units 06:25 TSH 2.680 (0.465-4.680) mIU/L Calcium panel 08/21/19 08/21/19 Range/Units 06:25 06:26 Calcium 8.7 (8.4-10.2) mg/dL Phosphorus 3.6 (2.5-4.5) mg/dL Albumin 3.2 L (3.5-5.0) g/dL Pituitary panel 08/21/19 08/21/19 Range/Units 06:25 06:26 Sodium 134 L (137-145) mmol/L Potassium 4.6 (3.5-5.1) mmol/L Chloride 102 (98-107) mmol/L Carbon Dioxide 27 (22-30) mmol/L BUN 48 H (9-20) mg/dL Creatinine 0.70 (0.66-1.25) mg/dL Glucose 223 H (74-99) mg/dL Calcium 8.7 (8.4-10.2) mg/dL TSH 2.680 (0.465-4.680) mIU/L Adrenal panel 08/21/19 Range/Units 06:26 Sodium 134 L (137-145) mmol/L Potassium 4.6 (3.5-5.1) mmol/L Chloride 102 (98-107) mmol/L Carbon Dioxide 27 (22-30) mmol/L BUN 48 H (9-20) mg/dL Creatinine 0.70 (0.66-1.25) mg/dL Glucose 223 H (74-99) mg/dL Calcium 8.7 (8.4-10.2) mg/dL Total Bilirubin 0.5 (0.2-1.3) mg/dL AST 26 (17-59) U/L ALT 28 (4-49) U/L Alkaline Phosphatase 93 (38-126) U/L Total Protein 5.6 L (6.3-8.2) g/dL Albumin 3.2 L (3.5-5.0) g/dL
[2019-08-21 15:28] LABS: Phosphorus 3.6 mg/dL (2.5-4.5)
[2019-08-21 15:33] LABS: Cholesterol 131 mg/dL (<200); HDL Cholesterol 34 mg/dL (40-60); LDL Cholesterol,Calculated 69 mg/dL (0-99); Triglycerides 140 mg/dL (<150)
--- NOTE | 2019-08-21 16:46 | P.HPIM ---
History of Present Illness H&P Date: 08/21/19 Chief Complaint: Melena 59-year-old male with PMH of atrial fibrillation on Eliquis, diabetes mellitus, hypertension, CHF sees Dr. Narvaez comes to the ED for melena. Patient states that he had a large bowel movement around 11:30 PM last night and the toilet bowl was full of dark red blood. Patient continued to have bloody bowel movements which prompted him to come to the ED. Patient states that he rarely uses NSAIDs. He does not have any alcohol intake. He denies any aspirin use. Patient complains of mild epigastric pain that is dull in nature and constant. Pain is 4 out of 10 in severity. Pain does not radiate. Patient denies any headache, lower extremity edema, nausea or vomiting, fever or chills, cough, chest pain, shortness of breath, palpitations, changes in urination or bowel habits. No changes in appetite or weight. He denies any dizziness, numbne ss/weakness/tingling of the extremities. In the ED, he was hemodynamically stable. CBC showed leukocytosis of 10.8 and hemoglobin of 10.1. Correlation panel was negative. CMP showed sodium of 134, BUN 48, glucose 223. Troponin was less than 0.012, EKG showing sinus rhythm with sinus arrhythmia. Lipid panel showed HDL of 34. TSH was within normal limits. Patient is admitted for GI bleed with surgery on consultation. Review of Systems Pertinent positives and negatives as discussed in HPI, a complete review of systems was performed and all other systems are negative. Past Medical History Past Medical History: Atrial Fibrillation, Asthma, Heart Failure, COPD, Diabetes Mellitus, Pneumonia, Sleep Apnea/CPAP/BIPAP Additional Past Medical History / Comment(s): Gastric bypass surgery more than 10 years ago with significant weight loss, chronic bronchial asthma, COPD, diabetes mellitus type 2, chronic atrial fibrillation, ALLERGIC urticaria, obesity, nephrolithiasis, degenerative arthritis, hypertension, chronic microcytic anemia, degenerative arthritis, CHF History of Any Multi-Drug Resistant Organisms: None Reported Past Surgical History: Bariatric Surgery, Cholecystectomy, Hernia Repair, Joint Replacement Additional Past Surgical History / Comment(s): UPPP, gastric bypass surgery, cholecystectomy, umbilical hernia repair, left total hip replacement, left shoulder surgery. Past Anesthesia/Blood Transfusion Reactions: Previous Problems w/ Anesthesia Additional Past Anesthesia/Blood Transfusion Reaction / Comment(s): STATES DIFF ICULTY WAKING UP "THEY OVERDOSED ME." Past Psychological History: No Psychological Hx Reported Smoking Status: Never smoker Past Alcohol Use History: None Reported Past Drug Use History: None Reported - Past Family History Mother Family Medical History: No Reported History Medications and Allergies Home Medications Medication Instructions Recorded Confirmed Type Albuterol Sulfate [Ventolin HFA] 2 puff INHALATION RT-Q6H PRN 07/10/14 08/21/19 History Apixaban [Eliquis] 5 mg PO BID tab 03/30/16 08/21/19 Rx Multivitamin/Iron/Folic Acid 1 tab PO DAILY 04/08/16 08/21/19 History [Centrum Complete Multivit Tab] Furosemide [Lasix] 40 mg PO BID 10/25/16 08/21/19 History Diltiazem Oral [Cardizem*] 60 mg PO TID #90 tab 06/21/17 08/21/19 Rx Ferrous Sulfate [Feosol] 325 mg PO DAILY #30 tab 06/21/17 08/21/19 Rx Vitamin A 8,000 unit PO DAILY #30 capsule 07/20/17 08/21/19 Rx Ascorbic Acid [Vitamin C with Ivy 500 mg PO BID 08/21/19 08/21/19 History Hips] Calcium Carbonate/Vitamin D3 1 tab PO BID 08/21/19 08/21/19 History [Calcium 600-Vit D3 200 Tablet] Cyclobenzaprine [Flexeril] 10 mg PO TID 08/21/19 08/21/19 History Metolazone [Zaroxolyn] 2.5 mg PO Q48H 08/21/19 08/21/19 History Metoprolol Tartrate [Lopressor] 12.5 mg PO BID 08/21/19 08/21/19 History Nascobal 1 spray NASAL FR 08/21/19 08/21/19 History Omeprazole [PriLOSEC] 20 mg PO AC-BID 08/21/19 08/21/19 History Zinc Gluconate [Zinc] 50 mg PO DAILY 08/21/19 08/21/19 History glipiZIDE [Glucotrol] 5 mg PO AC-BID 08/21/19 08/21/19 History metFORMIN HCL 1,000 mg PO BID 08/21/19 08/21/19 History Allergies Allergy/AdvReac Type Severity Reaction Status Date / Time lisinopril Allergy Unknown Dyspnea Verified 08/21/19 09:11 rofecoxib [From Vioxx] Allergy Unknown Dyspnea Verified 08/21/19 09:11 celecoxib [From Celebrex] Allergy Dyspnea Verified 08/21/19 09:11 POTASSIUM CITRATE Allergy Unknown Uncoded 08/21/19 09:11 Physical Exam Vitals: Vital Signs Temp Pulse Resp BP Pulse Ox 08/21/19 11:00 87 20 134/73 97 08/21/19 10:00 86 20 129/76 93 L 08/21/19 09:00 96 20 128/85 97 08/21/19 08:00 93 20 121/58 96 08/21/19 07:00 87 25 H 115/83 98 08/21/19 06:09 86 20 116/100 99 08/21/19 05:57 99.4 F 92 18 116/100 99 Intake and Output 08/21/19 08/21/19 08/21/19 06:59 14:59 22:59 Other: Weight 120.202 kg General: [non toxic], [no distress], [appears at stated age], [morbidly obese] Derm: [warm], [dry] Head: [atraumatic], [normocephalic], [symmetric] Eyes: [EOMI], [no lid lag], [anicteric sclera] Mouth: [no lip lesion], [mucus membranes moist] Cardiovascular: [S1S2 irregular], [no murmur], [positive DP pulse bilateral], Lungs: [CTA bilateral], [no rhonchi, no rales] , [no accessory muscle use] Abdominal: [soft], [ nontender to palpation], [no guarding], [no appreciable o rganomegaly] Ext: [no gross muscle atrophy], [no edema], [no contractures] Neuro: [ CN II-XI grossly intact], [no focal neuro deficits] Psych: [Alert], [oriented], [appropriate affect] Results CBC & Chem 7: 08/21/19 09:35 08/21/19 06:26 Labs: Abnormal Lab Results - Last 24 Hours (Table) 08/21/19 08/21/19 08/21/19 Range/Units 06:25 06:26 06:26 WBC 10.8 H (3.8-10.6) k/uL RBC 3.71 L (4.30-5.90) m/uL Hgb 10.1 L (13.0-17.5) gm/dL Hct 30.5 L (39.0-53.0) % Sodium 134 L (137-145) mmol/L BUN 48 H (9-20) mg/dL Glucose 223 H (74-99) mg/dL Total Protein 5.6 L (6.3-8.2) g/dL Albumin 3.2 L (3.5-5.0) g/dL HDL Cholesterol 34 L (40-60) mg/dL 08/21/19 Range/Units 09:35 WBC 11.3 H (3.8-10.6) k/uL RBC 3.71 L (4.30-5.90) m/uL Hgb 10.1 L (13.0-17.5) gm/dL Hct 30.2 L (39.0-53.0) % Sodium (137-145) mmol/L BUN (9-20) mg/dL Glucose (74-99) mg/dL Total Protein (6.3-8.2) g/dL Albumin (3.5-5.0) g/dL HDL Cholesterol (40-60) mg/dL Assessment and Plan Assessment: Acute GI bleed Leukocytosis Elevated BUN Diabetes mellitus with hyperglycemia Atrial fibrillation on Eliquis Hypertension Hemoglobin stable at 10.1. Plans: Start Protonix 40 mg IV twice a day. Discontinue Eliquis. Nothing by mouth after midnight. Plans for upper endoscopy tomorrow. Trend CBC every 4 hours. Leukocytosis of 10.8. Patient afebrile. No signs of infection. Plans: Likely reactive. Continue to monitor. Repeat CBC. BUN 48. Creatinine within normal limits. Likely from GI bleed. Plans: Continue normal saline at 100 mL/h. Avoid nephrotoxins. Repeat BMP tomorrow morning. [id number] glucose 223. Plans: Insulin sliding scale. Regular Accu-Cheks. Hypoglycemic precautions. Plans: Continue diltiazem and metoprolol. Eliquis on hold due to GI bleed. BP 134/73. Plans: Continue diltiazem and metoprolol as above. Monitor vitals, adjust indications as necessary. DVT prophylaxis: [SCD] Discussed with: [Patient and family] Anticipated discharge: [1-2 days] Anticipated discharge place: [Home] A total of [45] minutes was spent on the care of this complex patient more than 50% of the time was spent in counseling and care coordination. Patient names his [facility] decision maker if he can't make decisions for himself. Patient would like to be full code. Patient is admitted for anticipated greater than 48 hour stay for acute GI bleed.
[2019-08-21 17:09] LABS: HCT 27.7 % (39.0-53.0); HGB 9.2 gm/dL (13.0-17.5); MCH 27.6 pg (25.0-35.0); MCHC 33.3 g/dL (31.0-37.0); MCV 82.7 fL (80.0-100.0); Mean Platelet Volume 7.9; Platelet Count 285 k/uL (150-450); RBC 3.35 m/uL (4.30-5.90); WBC 8.5 k/uL (3.8-10.6)
[2019-08-21] MEDS ORDERED: INSULIN ASPART (NovoLOG) 100 UNIT/ML VIAL SQ SCH (17:30)
[2019-08-21 20:17] LABS: Glucose,Whole Blood 214 mg/dL (75-99)
[2019-08-21] MEDS: PANTOPRAZOLE 40 MG/10 ML VIAL IVP SCH (20:22)
[2019-08-21] MEDS: SODIUM CHLORIDE 0.9% 1,000 ML IV SCH (20:22)
[2019-08-21] MEDS: METOPROLOL TARTRATE 12.5 MG TAB PO SCH (20:23)
[2019-08-21] MEDS: FUROSEMIDE 40 MG TAB PO SCH (20:23)
[2019-08-21] MEDS: INSULIN ASPART (NovoLOG) 100 UNIT/ML VIAL SQ SCH ×2 (20:23→20:24)
[2019-08-21] MEDS: DILTIAZEM ORAL 60 MG TAB PO SCH (21:08)
[2019-08-21 21:35] LABS: HCT 28.3 % (39.0-53.0); HGB 9.3 gm/dL (13.0-17.5); MCH 27.4 pg (25.0-35.0); MCHC 32.8 g/dL (31.0-37.0); MCV 83.5 fL (80.0-100.0); Platelet Count 261 k/uL (150-450); RBC 3.38 m/uL (4.30-5.90); RDW 15.4 % (11.5-15.5); WBC 8.9 k/uL (3.8-10.6)
[2019-08-22 00:03] LABS: % Iron Saturation 18.78 (15.00-50.00); Iron 68 ug/dL (65-175); Total Iron Binding Capacity 362 ug/dL (228-460)
[2019-08-22 00:18] LABS: Folate, Serum >24.0 ng/mL
[2019-08-22 00:33] LABS: Hemoglobin A1C 8.1 % (4.0-6.0)
[2019-08-22 03:07] LABS: HCT 26.1 % (39.0-53.0); HGB 8.7 gm/dL (13.0-17.5); MCH 27.7 pg (25.0-35.0); MCHC 33.4 g/dL (31.0-37.0); MCV 82.9 fL (80.0-100.0); Mean Platelet Volume 8.5; Platelet Count 266 k/uL (150-450); RBC 3.14 m/uL (4.30-5.90); RDW 15.2 % (11.5-15.5)
[2019-08-22] MEDS: SODIUM CHLORIDE 0.9% 1,000 ML IV SCH ×3 (03:07→21:21)
[2019-08-22] MEDS: INSULIN ASPART (NovoLOG) 100 UNIT/ML VIAL SQ SCH ×4 (06:52→21:19)
[2019-08-22] MEDS: PANTOPRAZOLE 40 MG/10 ML VIAL IVP SCH ×2 (09:49→19:52)
[2019-08-22] MEDS: DILTIAZEM ORAL 60 MG TAB PO SCH ×3 (09:50→21:18)
--- NOTE | 2019-08-22 11:14 | P.PN ---
Subjective Progress Note Date: 08/22/19 Principal diagnosis: Melena Patient was seen and examined. No acute events overnight. Patient reports 2 additional bowel movements with tarry black stools. He denies any chest pain, shortness of breath or palpitations. No nausea or vomiting. No fever or chills. Objective - Vital Signs Vital signs: Vital Signs Temp 98.1 F 08/22/19 08:00 Pulse 88 08/22/19 08:00 Resp 18 08/22/19 08:00 BP 107/60 08/22/19 08:00 Pulse Ox 98 08/22/19 08:00 Intake & Output 08/21/19 08/22/19 08/22/19 18:59 06:59 18:59 Weight 120.202 kg 121.2 kg Other: # Voids 1 2 - Exam General: [non toxic], [no distress], [appears at stated age], [morbidly obese] Derm: [warm], [dry] Head: [atraumatic], [normocephalic], [symmetric] Eyes: [EOMI], [no lid lag], [anicteric sclera] Mouth: [no lip lesion], [mucus membranes moist] Cardiovascular: [S1S2 irregular], [no murmur], [positive DP pulse bilateral], Lungs: [CTA bilateral], [no rhonchi, no rales] , [no accessory muscle use] Abdominal: [soft], [ nontender to palpation], [no guarding], [no appreciable organomegaly] Ext: [no gross muscle atrophy], [no edema], [no contractures] Neuro: [ CN II-XI grossly intact], [no focal neuro deficits] Psych: [Alert], [oriented], [appropriate affect] - Labs CBC & Chem 7: 08/22/19 02:22 08/21/19 06:26 Labs: Abnormal Lab Results - Last 24 Hours (Table) 08/21/19 08/21/19 08/21/19 Range/Units 06:25 06:26 16:46 RBC 3.35 L (4.30-5.90) m/uL Hgb 9.2 L (13.0-17.5) gm/dL Hct 27.7 L (39.0-53.0) % POC Glucose (mg/dL) (75-99) mg/dL Hemoglobin A1c 8.1 H (4.0-6.0) % Ferritin 16.0 L (22.0-322.0) ng/mL HDL Cholesterol 34 L (40-60) mg/dL Vitamin D 25-Hydroxy 27.2 L (30.0-100.0) ng/mL 08/21/19 08/21/19 08/22/19 Range/Units 20:15 21:12 02:22 RBC 3.38 L 3.14 L (4.30-5.90) m/uL Hgb 9.3 L 8.7 L (13.0-17.5) gm/dL Hct 28.3 L 26.1 L (39.0-53.0) % POC Glucose (mg/dL) 214 H (75-99) mg/dL Hemoglobin A1c (4.0-6.0) % Ferritin (22.0-322.0) ng/mL HDL Cholesterol (40-60) mg/dL Vitamin D 25-Hydroxy (30.0-100.0) ng/mL Assessment and Plan Assessment: Acute GI bleed Elevated BUN Diabetes mellitus with hyperglycemia Atrial fibrillation on Eliquis Hypertension Hemoglobin stable at 10.1-8.7. Plans: Start Protonix 40 mg IV twice a day. Discontinue Eliquis. Nothing by mouth. Plans for upper endoscopy today. BUN 48. Creatinine within normal limits. Likely from GI bleed. Plans: Continue normal saline at 100 mL/h. Avoid nephrotoxins. Repeat BMP tomorrow morning. [id number] glucose 214. Plans: Insulin sliding scale. Regular Accu-Cheks. Hypoglycemic precautions. Plans: Continue diltiazem and metoprolol. Eliquis on hold due to GI bleed. BP 107/60. Plans: Continue diltiazem and metoprolol as above. Monitor vitals, adjust indications as necessary. [Patient admitted for GI bleed. Hemoglobin slowly downtrending. Likely upper GI bleed. Plans for endoscopy. He is pending clinical improvement. Likely DC in 2-3 days.]
[2019-08-22 11:25] LABS: Glucose,Whole Blood 186 mg/dL (75-99)
[2019-08-22 11:27] LABS: African American GFR (CKD) >90 (>60 ml/min/1.73 sqM); Anion Gap 4 mmol/L; Blood Urea Nitrogen 31 mg/dL (9-20); Calcium 8.8 mg/dL (8.4-10.2); Carbon Dioxide 29 mmol/L (22-30); Chloride 103 mmol/L (98-107); Glucose 165 mg/dL (74-99); Non-African American GFR(CKD) >90 (>60 ml/min/1.73 sqM); Potassium 4.2 mmol/L (3.5-5.1); Sodium 136 mmol/L (137-145)
[2019-08-22 11:34] LABS: HCT 27.4 % (39.0-53.0); MCH 27.7 pg (25.0-35.0); MCHC 32.9 g/dL (31.0-37.0); MCV 84.3 fL (80.0-100.0); Mean Platelet Volume 8.8; Platelet Count 264 k/uL (150-450); RBC 3.25 m/uL (4.30-5.90); RDW 15.1 % (11.5-15.5); WBC 8.5 k/uL (3.8-10.6)
[2019-08-22] MEDS ORDERED: IV FLUID CONTINUATION 1,000 ML IV ONE (11:40)
[2019-08-22] MEDS ORDERED: LIDOCAINE 1% INJ 10MG/ML (20 ML MDV) ONE (11:42)
[2019-08-22] MEDS ORDERED: PROPOFOL 10 MG/ML 20 ML VIAL IV ONE (11:42)
[2019-08-22] MEDS ORDERED: GLYCOPYRROLATE 0.2 MG/ML 2 ML VIAL ONE (11:42)
--- NOTE | 2019-08-22 12:16 | P.PCN ---
Date of Procedure: 08/22/19 Description of Procedure: PREOPERATIVE DIAGNOSES: 1. Epigastric abdominal pain. 2. Acute blood loss anemia 3. Gastrointestinal hemorrhage POSTOPERATIVE DIAGNOSES: 1. Epigastric abdominal pain. 2. Acute blood loss anemia 3. Gastrointestinal hemorrhage PROCEDURE PERFORMED: Esophagogastrojejunoscopy. SURGEON: Shawanda Castanon MD ANESTHESIA: MAC. INDICATIONS: The patient is a 59-year-old male with prior history of Sharona-en-Y gastric bypass who presents with epigastric abdominal pain, gastrointestinal hemorrhage and history of gastric ulcers. Upper endoscopy is offered for further assessment. DESCRIPTION: Patient was brought to the endoscopy suite and laid in the left lateral decubitus position. After adequate IV sedation, a bite block was placed. An Olympus gastroscope was passed along the posterior oropharynx down to the distal esophagus where the squamocolumnar junction was found at approximately 38 cm from the incisors. His anastomosis was found at 42 cm, consistent with approximately 4 cm gastric pouch. The scope was advanced 60 cm from the incisors. No evidence of foreign body was found. No evidence of active gastrojejunal ulcerations were encountered. The GI tract was desufflated. The patient tolerated the procedure well. FINDINGS: 1. No acute gastrojejunal ulceration. 2. No foreign body found along the anastomosis. PLAN: 1. Recommend upper endoscopy as needed.
[2019-08-22] MEDS: METOPROLOL TARTRATE 12.5 MG TAB PO SCH ×2 (12:58→19:52)
[2019-08-22] MEDS: FUROSEMIDE 40 MG TAB PO SCH ×2 (12:59→17:50)
[2019-08-22] MEDS: METOLAZONE 2.5 MG TAB PO SCH (16:33)
[2019-08-22 16:52] LABS: HCT 27.5 % (39.0-53.0); HGB 9.2 gm/dL (13.0-17.5); MCH 27.7 pg (25.0-35.0); MCHC 33.5 g/dL (31.0-37.0); MCV 82.7 fL (80.0-100.0); Mean Platelet Volume 8.8; Platelet Count 203 k/uL (150-450); RBC 3.32 m/uL (4.30-5.90); RDW 15.1 % (11.5-15.5); WBC 7.6 k/uL (3.8-10.6)
[2019-08-22 17:04] LABS: Glucose,Whole Blood 219 mg/dL (75-99)
[2019-08-22] MEDS ORDERED: POLYETHYLENE GLYCOL LYTES SOLN 4,000 ML SOLN.RECON PO ONE (18:00)
--- NOTE | 2019-08-22 18:19 | P.PN ---
Progress Note - Text Progress Note Date: 08/22/19 Patient seen and evaluated following upper endoscopy. and patient confirms another episode of dark stools. Patient has not had a colonoscopy in the past. Will proceed with colonoscopy tomorrow. All questions were answered.
[2019-08-22] MEDS: SODIUM FERRIC GLUCONAT-SUCROSE 125 MG in SODIUM CHLORIDE 0.9% 100 ML IVPB SCH (19:03)
[2019-08-22 20:29] LABS: Glucose,Whole Blood 218 mg/dL (75-99)
[2019-08-22 21:08] LABS: HCT 28.6 % (39.0-53.0); HGB 9.5 gm/dL (13.0-17.5); MCH 27.5 pg (25.0-35.0); MCV 83.4 fL (80.0-100.0); Mean Platelet Volume 8.4; Platelet Count 267 k/uL (150-450); RBC 3.44 m/uL (4.30-5.90); RDW 15.5 % (11.5-15.5)
[2019-08-23 01:12] LABS: HCT 27.5 % (39.0-53.0); HGB 9.1 gm/dL (13.0-17.5); MCH 27.4 pg (25.0-35.0); Mean Platelet Volume 8.2; Platelet Count 262 k/uL (150-450); RBC 3.31 m/uL (4.30-5.90); RDW 15.4 % (11.5-15.5); WBC 9.3 k/uL (3.8-10.6)
[2019-08-23 05:57] LABS: Glucose,Whole Blood 182 mg/dL (75-99)
[2019-08-23 06:03] LABS: HCT 25.3 % (39.0-53.0); HGB 8.5 gm/dL (13.0-17.5); MCH 27.8 pg (25.0-35.0); MCHC 33.6 g/dL (31.0-37.0); MCV 82.8 fL (80.0-100.0); Mean Platelet Volume 8.4; Platelet Count 238 k/uL (150-450); RBC 3.06 m/uL (4.30-5.90); RDW 15.5 % (11.5-15.5); WBC 8.5 k/uL (3.8-10.6)
[2019-08-23] MEDS: FUROSEMIDE 40 MG TAB PO SCH ×2 (06:08→17:05)
[2019-08-23] MEDS: INSULIN ASPART (NovoLOG) 100 UNIT/ML VIAL SQ SCH ×4 (06:10→21:33)
[2019-08-23] MEDS: METOPROLOL TARTRATE 12.5 MG TAB PO SCH ×2 (09:01→21:32)
[2019-08-23] MEDS: DILTIAZEM ORAL 60 MG TAB PO SCH ×3 (09:01→22:47)
[2019-08-23] MEDS: PANTOPRAZOLE 40 MG/10 ML VIAL IVP SCH ×2 (09:05→21:32)
[2019-08-23] MEDS: SODIUM CHLORIDE 0.9% 1,000 ML IV SCH ×3 (10:07→22:47)
[2019-08-23] MEDS: SODIUM FERRIC GLUCONAT-SUCROSE 125 MG in SODIUM CHLORIDE 0.9% 100 ML IVPB SCH (10:08)
[2019-08-23 10:32] LABS: HCT 25.1 % (39.0-53.0); HGB 8.5 gm/dL (13.0-17.5); MCHC 33.7 g/dL (31.0-37.0); MCV 83.1 fL (80.0-100.0); Mean Platelet Volume 7.9; Platelet Count 251 k/uL (150-450); RBC 3.02 m/uL (4.30-5.90); RDW 15.6 % (11.5-15.5); WBC 7.4 k/uL (3.8-10.6)
[2019-08-23 11:46] LABS: Glucose,Whole Blood 178 mg/dL (75-99)
[2019-08-23 11:52] LABS: Vitamin D, 1, 25-Dihydroxy 36 pg/mL (20 - 79)
[2019-08-23 13:01] LABS: Zinc, Serum 66 ug/dL (60-130)
--- NOTE | 2019-08-23 14:41 | P.PN ---
Subjective Progress Note Date: 08/23/19 Principal diagnosis: Melena Patient was seen and examined. No acute events overnight. Patient underwent bowel prep last night. He denies any chest pain, shortness of breath or palpitations. No nausea or vomiting. No fever or chills. Hemoglobin maintaining at 8.5. Objective - Vital Signs Vital signs: Vital Signs Temp 97.9 F 08/23/19 12:00 Pulse 92 08/23/19 12:00 Resp 16 08/23/19 12:00 BP 118/63 08/23/19 12:00 Pulse Ox 98 08/23/19 12:00 Intake & Output 08/22/19 08/23/19 08/23/19 18:59 06:59 18:59 Intake Total 750 0 Output Total 0 Balance 750 0 Weight 122.3 kg Intake: IV 50 Oral 700 0 Output: Urine 0 Stool 0 Urine/Stool Mix 0 Other: Voiding Method Toilet Toilet # Voids 2 2 0 # Bowel Movements 1 - Exam General: [non toxic], [no distress], [appears at stated age], [morbidly obese] Derm: [warm], [dry] Head: [atraumatic], [normocephalic], [symmetric] Eyes: [EOMI], [no lid lag], [anicteric sclera] Mouth: [no lip lesion], [mucus membranes moist] Cardiovascular: [S1S2 irregular], [no murmur], [positive DP pulse bilateral], Lungs: [CTA bilateral], [no rhonchi, no rales] , [no accessory muscle use] Abdominal: [soft], [ nontender to palpation], [no guarding], [no appreciable organomegaly] Ext: [no gross muscle atrophy], [no edema], [no contractures] Neuro: [ CN II-XI grossly intact], [no focal neuro deficits] Psych: [Alert], [oriented], [appropriate affect] - Labs CBC & Chem 7: 08/23/19 10:18 08/22/19 07:48 Labs: Abnormal Lab Results - Last 24 Hours (Table) 08/22/19 08/22/19 08/22/19 Range/Units 16:38 17:03 20:20 RBC 3.32 L (4.30-5.90) m/uL Hgb 9.2 L (13.0-17.5) gm/dL Hct 27.5 L (39.0-53.0) % RDW (11.5-15.5) % POC Glucose (mg/dL) 219 H 218 H (75-99) mg/dL 08/22/19 08/23/19 08/23/19 Range/Units 20:39 00:52 05:15 RBC 3.44 L 3.31 L 3.06 L (4.30-5.90) m/uL Hgb 9.5 L 9.1 L 8.5 L (13.0-17.5) gm/dL Hct 28.6 L 27.5 L 25.3 L (39.0-53.0) % RDW (11.5-15.5) % POC Glucose (mg/dL) (75-99) mg/dL 08/23/19 08/23/19 08/23/19 Range/Units 05:55 10:18 11:44 RBC 3.02 L (4.30-5.90) m/uL Hgb 8.5 L (13.0-17.5) gm/dL Hct 25.1 L (39.0-53.0) % RDW 15.6 H (11.5-15.5) % POC Glucose (mg/dL) 182 H 178 H (75-99) mg/dL Assessment and Plan Assessment: Acute GI bleed Elevated BUN Diabetes mellitus with hyperglycemia Atrial fibrillation on Eliquis Hypertension Hemoglobin stable at 10.1-8.5. EGD shows no abnormalities. Plans: Start Protonix 40 mg IV twice a day. Discontinue Eliquis. Nothing by mouth. Plans for colonoscopy today. BUN 48. Creatinine within normal limits. Likely from GI bleed. Plans: Continue normal saline at 100 mL/h. Avoid nephrotoxins. Repeat BMP tomorrow morning. [id number] glucose 178. Plans: Insulin sliding scale. Regular Accu-Cheks. Hypoglycemic precautions. Plans: Continue diltiazem and metoprolol. Eliquis on hold due to GI bleed. BP 118/63. Plans: Continue diltiazem and metoprolol as above. Monitor vitals, adjust indications as necessary. [Patient admitted for GI bleed. Hemoglobin slowly downtrending. Plans for colonoscopy today. Plans on DC today or tomorrow depending on colonoscopy results.]
[2019-08-23] MEDS ORDERED: LIDOCAINE 1% INJ 10MG/ML (20 ML MDV) ONE (15:10)
[2019-08-23] MEDS ORDERED: PROPOFOL 10 MG/ML 20 ML VIAL IV ONE (15:10)
[2019-08-23] MEDS ORDERED: IV FLUID CONTINUATION 1,000 ML IV ONE ×2 (15:12)
[2019-08-23 16:32] LABS: Glucose,Whole Blood 164 mg/dL (75-99)
[2019-08-23 20:34] LABS: Glucose,Whole Blood 206 mg/dL (75-99)
[2019-08-24 06:08] LABS: Glucose,Whole Blood 170 mg/dL (75-99)
[2019-08-24] MEDS: FUROSEMIDE 40 MG TAB PO SCH (06:12)
[2019-08-24] MEDS: INSULIN ASPART (NovoLOG) 100 UNIT/ML VIAL SQ SCH (06:12)
[2019-08-24 06:33] LABS: Anisocytosis Slight; Basophils # (A) 0.1 k/uL (0-0.2); Basophils % (A) 1 %; Eosinophils # (A) 0.3 k/uL (0-0.7); Eosinophils % (A) 4 %; HCT 25.6 % (39.0-53.0); HGB 8.5 gm/dL (13.0-17.5); Lymphocytes # (A) 1.7 k/uL (1.0-4.8); Lymphocytes % (A) 22 %; MCH 27.7 pg (25.0-35.0); Mean Platelet Volume 8.2; Monocytes # (A) 0.6 k/uL (0-1.0); Monocytes % (A) 7 %; Neutrophils # (A) 4.8 k/uL (1.3-7.7); Neutrophils % (A) 64 %; Platelet Count 261 k/uL (150-450); RBC 3.05 m/uL (4.30-5.90); RDW 16.3 % (11.5-15.5); WBC 7.5 k/uL (3.8-10.6)
[2019-08-24] MEDS: METOLAZONE 2.5 MG TAB PO SCH (07:14)
[2019-08-24 07:21] LABS: Vitamin A 51 ug/dL (38-106)
[2019-08-24] MEDS: DILTIAZEM ORAL 60 MG TAB PO SCH (09:08)
[2019-08-24] MEDS: METOPROLOL TARTRATE 12.5 MG TAB PO SCH (09:08)
[2019-08-24] MEDS: PANTOPRAZOLE 40 MG/10 ML VIAL IVP SCH (09:08)
--- NOTE | 2019-08-24 10:35 | P.DS ---
Providers Date of admission: 08/21/19 07:58 Expected date of discharge: 08/24/19 Attending physician: Minor Ledezma MD Consults: 08/21/19 07:59 Consult Physician Urgent Consulting Provider: Shawanda Castanon Consult Reason/Comments: upper gi bleed, has been scoped by you in past Do you want consulting provider notified?: Yes, Notify in am 08/23/19 09:08 Consult Physician Routine Consulting Provider: Bib Narvaez Consult Reason/Comments: Afib, anticoagulation with GI bleed Do you want consulting provider notified?: Yes Primary care physician: Malcolm Menjivar MD Hospital Course: 59-year-old male with PMH of atrial fibrillation on Eliquis, diabetes mellitus, hypertension, CHF sees Dr. Narvaez comes to the ED for melena. Patient states that he had a large bowel movement around 11:30 PM last night and the toilet bowl was full of dark red blood. Patient continued to have bloody bowel movements which prompted him to come to the ED. Patient states that he rarely uses NSAIDs. He does not have any alcohol intake. He denies any aspirin use. Patient complains of mild epigastric pain that is dull in nature and constant. Pain is 4 out of 10 in severity. Pain does not radiate. Patient denies any headache, lower extremity edema, nausea or vomiting, fever or chills, cough, chest pain, shortness of breath, palpitations, changes in urination or bowel habits. No changes in appetite or weight. He denies any dizziness, numbness/weakness/tingling of the extremities. In the ED, he was hemodynamically stable. CBC showed leukocytosis of 10.8 and hemoglobin of 10.1. Correlation panel was negative. CMP showed sodium of 134, BUN 48, glucose 223. Troponin was less than 0.012, EKG showing sinus rhythm with sinus arrhythmia. Lipid panel showed HDL of 34. TSH was within normal limits. Patient is admitted for GI bleed with surgery on consultation. His hemoglobin dropped from 10.1 to a low of 8.5 during his hospitalization. General surgery was consulted and recommended EGD and colonoscopy. EGD was unremarkable. Colonoscopy was unremarkable. Patient's GI bleed resolved during his hospitalization. Patient was seen and examined. No acute events overnight. Patient reports normal bowel movement yesterday. He denies any chest pain, shortness breath or palpitations. No nausea or vomiting. No fever or chills. General: [non toxic], [no distress], [appears at stated age], [morbidly obese] Derm: [warm], [dry] Head: [atraumatic], [normocephalic], [symmetric] Eyes: [EOMI], [no lid lag], [anicteric sclera] Mouth: [no lip lesion], [mucus membranes moist] Cardiovascular: [S1S2 irregular], [no murmur], [positive DP pulse bilateral], Lungs: [CTA bilateral], [no rhonchi, no rales] , [no accessory muscle use] Abdominal: [soft], [ nontender to palpation], [no guarding], [no appreciable organomegaly] Ext: [no gross muscle atrophy], [no edema], [no contractures] Neuro: [no focal neuro deficits] Psych: [Alert], [oriented], [appropriate affect] Acute GI bleed Elevated BUN Diabetes mellitus with hyperglycemia Atrial fibrillation on Eliquis Hypertension Hemoglobin stable at 10.1-8.5. EGD shows no abnormalities. Plans: Colonoscopy and EGD unremarkable. GI bleed resolved. Surgery recommends discontinuation of Eliquis and cardiology has been consulted further recommendations regarding this matter. BUN 48-31. Creatinine within normal limits. Likely from GI bleed. Plans: Encourage hydration by mouth. [id number] glucose 170. Plans: Insulin sliding scale. Regular Accu-Cheks. Hypoglycemic precautions. Plans: Continue diltiazem and metoprolol. Eliquis on hold due to GI bleed. BP 121/63. Plans: Continue diltiazem and metoprolol as above. Monitor vitals, adjust indications as necessary. [Patient admitted for GI bleed. Hemoglobin improved. Discussed with cardiology, will attempt to get a hold of Dr. Castanon for guidance regarding Eliquis. ] Procedures: EGD and colonoscopy Patient Condition at Discharge: Stable Plan - Discharge Summary Discharge Rx Participant: No New Discharge Prescriptions: Continue Albuterol Sulfate [Ventolin HFA] 2 puff INHALATION RT-Q6H PRN PRN Reason: Shortness Of Breath Or Wheezing Multivitamin/Iron/Folic Acid [Centrum Complete Multivit Tab] 1 tab PO DAILY Furosemide [Lasix] 40 mg PO BID Diltiazem Oral [Cardizem*] 60 mg PO TID #90 tab Ferrous Sulfate [Feosol] 325 mg PO DAILY #30 tab Vitamin A 8,000 unit PO DAILY #30 capsule Nascobal 1 spray NASAL FR Omeprazole [PriLOSEC] 20 mg PO AC-BID Metoprolol Tartrate [Lopressor] 12.5 mg PO BID Calcium Carbonate/Vitamin D3 [Calcium 600-Vit D3 200 Tablet] 1 tab PO BID glipiZIDE [Glucotrol] 5 mg PO AC-BID Zinc Gluconate [Zinc] 50 mg PO DAILY metFORMIN HCL 1,000 mg PO BID Metolazone [Zaroxolyn] 2.5 mg PO Q48H Ascorbic Acid [Vitamin C with Ivy Hips] 500 mg PO BID Discontinued Cyclobenzaprine [Flexeril] 10 mg PO TID No Action Apixaban [Eliquis] 5 mg PO BID tab Discharge Medication List Albuterol Sulfate [Ventolin HFA] 2 puff INHALATION RT-Q6H PRN 07/10/14 [History] Apixaban [Eliquis] 5 mg PO BID tab 03/30/16 [Rx] Multivitamin/Iron/Folic Acid [Centrum Complete Multivit Tab] 1 tab PO DAILY 04/08/16 [History] Furosemide [Lasix] 40 mg PO BID 10/25/16 [History] Diltiazem Oral [Cardizem*] 60 mg PO TID #90 tab 06/21/17 [Rx] Ferrous Sulfate [Feosol] 325 mg PO DAILY #30 tab 06/21/17 [Rx] Vitamin A 8,000 unit PO DAILY #30 capsule 07/20/17 [Rx] Ascorbic Acid [Vitamin C with Ivy Hips] 500 mg PO BID 08/21/19 [History] Calcium Carbonate/Vitamin D3 [Calcium 600-Vit D3 200 Tablet] 1 tab PO BID 08/21/19 [History] Metolazone [Zaroxolyn] 2.5 mg PO Q48H 08/21/19 [History] Metoprolol Tartrate [Lopressor] 12.5 mg PO BID 08/21/19 [History] Nascobal 1 spray NASAL FR 08/21/19 [History] Omeprazole [PriLOSEC] 20 mg PO AC-BID 08/21/19 [History] Zinc Gluconate [Zinc] 50 mg PO DAILY 08/21/19 [History] glipiZIDE [Glucotrol] 5 mg PO AC-BID 08/21/19 [History] metFORMIN HCL 1,000 mg PO BID 08/21/19 [History] Follow up Appointment(s)/Referral(s): Malcolm Menjivar MD [Primary Care Provider] - 08/28/19 1:00 pm [facility] [place] [facility] - 09/05/19 3:00 pm Bib Narvaez MD [STAFF PHYSICIAN] - 1 Week Patient Instructions/Handouts: *Surgery [facility] - (Anesthesia) Endoscopy Discharge Instructions, Gastrointestinal Bleeding (DC), Iron Rich Diet (DC), Safe Use of Anticoagulants (DC) Activity/Diet/Wound Care/Special Instructions: Diet: Low-salt follow-up with PCP within 3 days of discharge. Follow-up with cardiology within 1 week of discharge. Follow-up with Dr. Castanon within 1 week of discharge. Discharge Disposition: HOME SELF-CARE
[2019-08-24] MEDS: SODIUM FERRIC GLUCONAT-SUCROSE 125 MG in SODIUM CHLORIDE 0.9% 100 ML IVPB SCH (11:14)
[2019-08-24 11:43] LABS: Glucose,Whole Blood 181 mg/dL (75-99)
[2019-08-24 12:07] VITALS: BP 138/82; PULSE 61; RESP 18; TEMP 97.4
[2019-08-24 12:55] LABS: Vit B1(Thiamine) 70 ug/L (38-122)
--- NOTE | 2019-08-24 13:09 | P.PN ---
<Salome Ramires - Last Filed: 08/24/19 13:07> Subjective Progress Note Date: 08/24/19 CHIEF COMPLAINT: Upper GI bleed HISTORY OF PRESENT ILLNESS: Patient underwent colonoscopy yesterday with no evidence of acute bleeding. Patient examined today at the bedside. He denies abdominal pain. Tolerating diet without nausea or vomiting. No further episodes of dark stools. Hemoglobin 8.5. Patient is hoping to be discharged home today. PHYSICAL EXAM: VITAL SIGNS: Reviewed GENERAL: Well-developed in no acute distress. HEENT: No sclera icterus. Extraocular movements grossly intact. Moist buccal mucosa. Head is atraumatic, normocephalic. Hears conversational speech. No nasal drainage. NECK: Supple without lymphadenopathy. CHEST: Non-labored respirations and equal bilateral excursions. CARDIOVASCULAR: Regular rate with regular rhythm. Palpable 2+ radial pulses. ABDOMEN: Soft. Nondistended. Nontender. MUSCULOSKELETAL: No clubbing, cyanosis or edema. NEUROLOGIC: No focal or lateralizing signs. Cranial nerves II through XII grossly intact. PSYCH: Appropriate affect. Alert and oriented to person, place and time. SKIN: Well perfused. Good skin turgor. ASSESSMENT: 1. GI bleed 2. History of Sharona-en-Y gastric bypass 3. History of atrial fibrillation on long-term anticoagulation with Eliquis PLAN: -Continue diet as tolerated -Monitor hemoglobin -Dr. Castanon recommends holding Eliquis at discharge -Change Prilosec to 40mg daily at discharge -Stable for discharge from a surgical standpoint. Patient to follow up with Dr. Castanon outpatient. Nurse practitioner note has been reviewed by physician. Signing provider agrees with the documented findings, assessment, and plan of care. Objective - Vital Signs Vital signs: Vital Signs Temp 97.4 F L 08/24/19 12:00 Pulse 61 08/24/19 12:00 Resp 18 08/24/19 12:00 BP 138/82 08/24/19 12:00 Pulse Ox 98 08/24/19 12:00 Intake & Output 08/23/19 08/24/19 08/24/19 18:59 06:59 18:59 Intake Total 350 240 Output Total 0 Balance 350 240 Weight 116.4 kg Intake: IV 250 Oral 100 240 Output: Urine 0 Stool 0 Urine/Stool Mix 0 Other: Voiding Method Toilet Toilet Toilet # Voids 1 3 - Labs CBC & Chem 7: 08/24/19 05:49 08/22/19 07:48 Labs: Abnormal Lab Results - Last 24 Hours (Table) 08/23/19 08/23/19 08/24/19 Range/Units 16:31 20:32 05:49 RBC 3.05 L (4.30-5.90) m/uL Hgb 8.5 L (13.0-17.5) gm/dL Hct 25.6 L (39.0-53.0) % RDW 16.3 H (11.5-15.5) % POC Glucose (mg/dL) 164 H 206 H (75-99) mg/dL 08/24/19 08/24/19 Range/Units 06:07 11:42 RBC (4.30-5.90) m/uL Hgb (13.0-17.5) gm/dL Hct (39.0-53.0) % RDW (11.5-15.5) % POC Glucose (mg/dL) 170 H 181 H (75-99) mg/dL <Shawanda Castanon N - Last Filed: 08/24/19 17:56> Subjective Patient has history of recurrent GI bleed in the last 2 years. He has gastric bypass where remnant stomach very difficult to control for any bleeding outside of exploratory laparotomy and or transfer to tertiary care center for intraoperative placement of PEG tube and EGD. Recommend hold anticoagulant as patient has history of recurrent bleeds. Alternative management of A. fib without anticoagulation requested. Objective - Vital Signs Vital signs: Vital Signs Temp 97.4 F L 08/24/19 12:00 Pulse 61 08/24/19 12:00 Resp 18 08/24/19 12:00 BP 138/82 08/24/19 12:00 Pulse Ox 98 08/24/19 12:00 Intake & Output 08/23/19 08/24/19 08/24/19 18:59 06:59 18:59 Intake Total 350 240 Output Total 0 Balance 350 240 Weight 116.4 kg Intake: IV 250 Oral 100 240 Output: Urine 0 Stool 0 Urine/Stool Mix 0 Other: Voiding Method Toilet Toilet Toilet # Voids 1 3 - Labs CBC & Chem 7: 08/24/19 05:49 08/22/19 07:48 Labs: Abnormal Lab Results - Last 24 Hours (Table) 08/23/19 08/24/19 08/24/19 Range/Units 20:32 05:49 06:07 RBC 3.05 L (4.30-5.90) m/uL Hgb 8.5 L (13.0-17.5) gm/dL Hct 25.6 L (39.0-53.0) % RDW 16.3 H (11.5-15.5) % POC Glucose (mg/dL) 206 H 170 H (75-99) mg/dL 08/24/19 Range/Units 11:42 RBC (4.30-5.90) m/uL Hgb (13.0-17.5) gm/dL Hct (39.0-53.0) % RDW (11.5-15.5) % POC Glucose (mg/dL) 181 H (75-99) mg/dL
--- NOTE | 2019-08-24 14:15 | P.CRDCN ---
History of Present Illness Consult date: 08/24/19 History of present illness: This is a pleasant 59-year-old gentleman with past medical history significant for obesity, hypertension, history of Sharona-en-Y gastric bypass diabetes, sleep apnea, COPD, follows with Dr. Dawson in the office. Admitted to the hospital on this occasion because of melena stools. Hemoglobin on admission here 8.7. The patient underwent an EGD which did not reveal any acute gastro-jejunal ulceration, no foreign body found along the anastomosis. Patient has had history of GI bleed requiring transfusion in the past, the EGD and colonoscopy h ere did not reveal the source of bleeding, however there is a portion of the stomach that is not accessible by scope due to the gastric sleeve according to Dr. Collier. She does suspect underlying ulcer disease and for this reason does not want the patient on oral anticoagulation. The Eliquis for this reason has been discontinued. Blood pressure 138/80 with a heart rate in the 60s, temperature 97.4, 98% on room air. White blood cell count 7.5, hemoglobin 8.5, platelet count 261. Sodium 136, potassium 4.2, BUN 31, creatinine 0.6. Past Medical History Past Medical History: Atrial Fibrillation, Asthma, Heart Failure, COPD, Diabetes Mellitus, Pneumonia, Sleep Apnea/CPAP/BIPAP Additional Past Medical History / Comment(s): Gastric bypass surgery more than 10 years ago with significant weight loss, chronic bronchial asthma, COPD, diabetes mellitus type 2, chronic atrial fibrillation, ALLERGIC urticaria, obesity, nephrolithiasis, degenerative arthritis, hypertension, chronic microcytic anemia, degenerative arthritis, CHF History of Any Multi-Drug Resistant Organisms: None Reported Past Surgical History: Bariatric Surgery, Cholecystectomy, Hernia Repair, Joint Replacement Additional Past Surgical History / Comment(s): UPPP, gastric bypass surgery, cholecystectomy, umbilical hernia repair, left total hip replacement, left shoulder surgery. Past Anesthesia/Blood Transfusion Reactions: Previous Problems w/ Anesthesia Additional Past Anesthesia/Blood Transfusion Reaction / Comment(s): STATES DIFFICULTY WAKING UP "THEY OVERDOSED ME." Past Psychological History: No Psychological Hx Reported Smoking Status: Never smoker Past Alcohol Use History: None Reported Past Drug Use History: None Reported - Past Family History Mother Family Medical History: No Reported History Medications and Allergies Home Medications Medication Instructions Recorded Confirmed Type Albuterol Sulfate [Ventolin HFA] 2 puff INHALATION RT-Q6H PRN 07/10/14 08/21/19 History Multivitamin/Iron/Folic Acid 1 tab PO DAILY 04/08/16 08/21/19 History [Centrum Complete Multivit Tab] Furosemide [Lasix] 40 mg PO BID 10/25/16 08/21/19 History Diltiazem Oral [Cardizem*] 60 mg PO TID #90 tab 06/21/17 08/21/19 Rx Ferrous Sulfate [Feosol] 325 mg PO DAILY #30 tab 06/21/17 08/21/19 Rx Vitamin A 8,000 unit PO DAILY #30 capsule 07/20/17 08/21/19 Rx Ascorbic Acid [Vitamin C with Ivy 500 mg PO BID 08/21/19 08/21/19 History Hips] Calcium Carbonate/Vitamin D3 1 tab PO BID 08/21/19 08/21/19 History [Calcium 600-Vit D3 200 Tablet] Metolazone [Zaroxolyn] 2.5 mg PO Q48H 08/21/19 08/21/19 History Metoprolol Tartrate [Lopressor] 12.5 mg PO BID 08/21/19 08/21/19 History Nascobal 1 spray NASAL FR 08/21/19 08/21/19 History Zinc Gluconate [Zinc] 50 mg PO DAILY 08/21/19 08/21/19 History glipiZIDE [Glucotrol] 5 mg PO AC-BID 08/21/19 08/21/19 History metFORMIN HCL 1,000 mg PO BID 08/21/19 08/21/19 History Omeprazole [PriLOSEC] 40 mg PO DAILY #30 cap 08/24/19 Rx Allergies Allergy/AdvReac Type Severity Reaction Status Date / Time lisinopril Allergy Unknown Dyspnea Verified 08/21/19 09:11 rofecoxib [From Vioxx] Allergy Unknown Dyspnea Verified 08/21/19 09:11 celecoxib [From Celebrex] Allergy Dyspnea Verified 08/21/19 09:11 POTASSIUM CITRATE Allergy Unknown Uncoded 08/21/19 09:11 Physical Exam Vitals: Vital Signs Temp Pulse Resp BP BP Pulse Ox 08/24/19 12:00 97.4 F L 61 18 138/82 98 08/24/19 07:54 98.4 F 73 20 121/63 99 08/24/19 03:52 70 12 08/24/19 03:49 97.9 F 70 12 97/60 98 08/23/19 23:22 82 16 08/23/19 22:51 98.0 F 82 16 107/63 96 08/23/19 21:15 62 16 08/23/19 20:50 62 16 08/23/19 20:00 97.9 F 62 16 113/70 97 08/23/19 16:00 97.9 F 74 16 111/66 96 Intake and Output 08/23/19 08/24/19 08/24/19 22:59 06:59 14:59 Intake Total 350 240 Output Total 0 Balance 350 240 Intake: IV 250 Oral 100 240 Output: Stool 0 Other: Voiding Method Toilet Toilet Toilet # Voids 1 3 Weight 116.4 kg GENERAL: Revealed a 57-year-old white male, obese, in no distress. HEENT: No sclera icterus. Extraocular movements grossly intact. Moist buccal mucosa. Head is atraumatic, normocephalic. Hears conversational speech. No nasal drainage. NECK: Supple without lymphadenopathy. CHEST: Non-labored respirations and equal bilateral excursions. Diminished breath sounds and dullness noted at the left base, right side is relatively clear. CARDIOVASCULAR: Irregular rate and rhythm. ABDOMEN: Obese, soft, nontender, no megaly, no rebound, no guarding. MUSCULOSKELETAL: No clubbing, cyanosis or edema. NEUROLOGIC: No gross focal neurologic deficit. PSYCH: Appropriate affect. Alert and oriented to person, place and time. SKIN: Good skin turgor. Well perfused. Results 08/24/19 05:49 08/22/19 07:48 CBC 08/24/19 Range/Units 05:49 WBC 7.5 (3.8-10.6) k/uL RBC 3.05 L (4.30-5.90) m/uL Hgb 8.5 L (13.0-17.5) gm/dL Hct 25.6 L (39.0-53.0) % Plt Count 261 (150-450) k/uL Intake and Output 08/23/19 08/24/19 08/24/19 22:59 06:59 14:59 Intake Total 350 240 Output Total 0 Balance 350 240 Intake: IV 250 Oral 100 240 Output: Stool 0 Other: Voiding Method Toilet Toilet Toilet # Voids 1 3 Weight 116.4 kg 08/24/19 05:49 08/22/19 07:48 EKG Interpretations (text) EKG shows sinus rhythm with PACs. Assessment and Plan Plan: Assessment and plan #1 acute GI bleed #2 diabetes #3 paroxysmal atrial fibrillation, currently off Eliquis, per surgical request secondary to GI bleed #4 hypertension Plan Patient will be discharged home today off of the Eliquis. The case was discussed in detail by Dr. Pastrana and Dr. Collier. Dr. Collier advised that the patient has history of GI bleed requiring transfusion in the past. Even though the EGD and colonoscopy did not reveal the source of bleeding, there is a portion of the stomach that is not accessible by scope due to the gastric sleeve. Dr. Collier suspects underlying ulcer disease and therefore recommends patient not be on anticoagulation. We will make a follow-up appointment in the office for the patient to see Dr. Dawson. DNP note has been reviewed, I agree with a documented findings and plan of care. Patient was seen and examined.
[2019-08-25 01:06] LABS: Selenium 106 mcg/L (63-160)
== END 2019-08-24 12:22 | disposition home or self-care (01) | DRG 378 ==
LOC: EC 05:52 → 5NMEDONC 07:58 → 3SCARD 09:10
PROVIDERS: ADMIT Family Medicine; ATTEND Family Medicine
DX: K25.4 Chronic or unspecified gastric ulcer with hemorrhage (principal); D62 Acute posthemorrhagic anemia; I48.20 Chronic atrial fibrillation, unspecified; Z68.41 Body mass index [BMI] 40.0-44.9, adult; I11.0 Hypertensive heart disease with heart failure; I50.9 Heart failure, unspecified; J44.9 Chronic obstructive pulmonary disease, unspecified; D72.829 Elevated white blood cell count, unspecified; E11.65 Type 2 diabetes mellitus with hyperglycemia; M19.90 Unspecified osteoarthritis, unspecified site; R94.4 Abnormal results of kidney function studies; G47.33 Obstructive sleep apnea (adult) (pediatric); E66.01 Morbid (severe) obesity due to excess calories; Z79.01 Long term (current) use of anticoagulants; Z79.82 Long term (current) use of aspirin; Z79.84 Long term (current) use of oral hypoglycemic drugs; Z79.899 Other long term (current) drug therapy; Z88.8 Allergy status to other drugs, medicaments and biological substances; Z98.84 Bariatric surgery status; Z96.642 Presence of left artificial hip joint; Z87.442 Personal history of urinary calculi; Z87.11 Personal history of peptic ulcer disease; Z90.49 Acquired absence of other specified parts of digestive tract; Z87.01 Personal history of pneumonia (recurrent)
CPT/HCPCS: 36415; 43235; 45378; 80048; 80053; 80061; 82306; 82525; 82607; 82652; 82728; 82746; 83036; 83540; 83550; 83605; 83735; 84100; 84134; 84255; 84425; 84443; 84484; 84590; 84630; 85025; 85027; 85610; 85730; 86850; 86900; 86901; 93005; 96360; 96361; 96374; 99285

== ENCOUNTER → 2020-05-06 | Outpatient (CLI) | payer OTHER ==
--- NOTE | 2020-05-06 12:12 | XR ---
EXAMINATION TYPE: XR abdomen 1V DATE OF EXAM: 05/06/2020 Comparison: 10/27/2016 Clinical History: 60-year-old male N20.0 calculus kidney Findings: Degenerative disc disease throughout the visualized lumbar spine. Partially visualized left total hip arthroplasty. 9 mm calcification right mid abdomen as compared to 2.1 cm in 2017. Cholecystectomy cl ips. Vascular calcifications in the pelvis. Some surgical material projecting in the left mid abdomen. Sma ll surgical clip in the right mid pelvis, unchanged. Nonobstructive bowel gas pattern. Mild scattered stool. Impression: 9 mm right renal calculus, smaller as compared to 2017 where it measured 2.1 cm.
== END | disposition home or self-care (01) ==
LOC: RADXRMAIN 10:41
PROVIDERS: ATTEND Urology
DX: N20.0 Calculus of kidney (principal)
CPT/HCPCS: 74018

== ENCOUNTER → 2020-05-12 | Outpatient (CLI) | payer OTHER ==
[2020-05-12 14:06] LABS: Basophils # (A) 0.1 k/uL (0-0.2); Basophils % (A) 1 %; Eosinophils # (A) 0.1 k/uL (0-0.7); Eosinophils % (A) 1 %; HCT 49.8 % (39.0-53.0); HGB 16.5 gm/dL (13.0-17.5); Lymphocytes # (A) 2.1 k/uL (1.0-4.8); Lymphocytes % (A) 19 %; MCH 28.8 pg (25.0-35.0); MCHC 33.2 g/dL (31.0-37.0); MCV 86.8 fL (80.0-100.0); Mean Platelet Volume 7.3; Monocytes # (A) 0.7 k/uL (0-1.0); Monocytes % (A) 6 %; Neutrophils # (A) 7.9 k/uL (1.3-7.7); Neutrophils % (A) 72 %; Platelet Count 368 k/uL (150-450); RBC 5.74 m/uL (4.30-5.90); RDW 13.4 % (11.5-15.5)
[2020-05-12 14:13] LABS: African American GFR (CKD) >90 (>60 ml/min/1.73 sqM); Anion Gap 7 mmol/L; Blood Urea Nitrogen 31 mg/dL (9-20); Carbon Dioxide 39 mmol/L (22-30); Chloride 90 mmol/L (98-107); Non-African American GFR(CKD) >90 (>60 ml/min/1.73 sqM); Potassium 4.7 mmol/L (3.5-5.1); Sodium 136 mmol/L (137-145)
[2020-05-12 14:14] LABS: Appearance,Urine Clear (Clear); Bilirubin,Urine Negative (Negative); Blood,Urine Trace (Negative); Color,Urine Light Yellow; Glucose,Urine (UA) Trace (Negative); Ketones,Urine Negative (Negative); Leukocyte Esterase,Urine Negative (Negative); Mucus,Urine Rare /hpf; Nitrite,Urine Negative (Negative); Protein,Urine Negative (Negative); RBC,Urine 8 /hpf (0-5); Specific Gravity,Urine 1.009 (1.001-1.035); Squamous Epithelial Cell,Urine <1 /hpf (0-4); Urobilinogen,Urine <2.0 mg/dL (<2.0)
== END | disposition home or self-care (01) ==
LOC: LABPAT 11:05
PROVIDERS: ATTEND Urology
DX: Z01.818 Encounter for other preprocedural examination (principal); N20.0 Calculus of kidney; R31.21 Asymptomatic microscopic hematuria; E11.9 Type 2 diabetes mellitus without complications
CPT/HCPCS: 80051; 81001; 82565; 84520; 85025

== ENCOUNTER → 2020-06-16 | Outpatient (CLI) | payer OTHER ==
--- NOTE | 2020-06-16 09:52 | XR ---
EXAMINATION TYPE: XR abdomen 1V DATE OF EXAM: 06/16/2020 HISTORY: Pain Comparison: 05/06/2020Single KUB is submitted for interpretation. Findings: Right renal calculi: 8.3 mm calculus lower pole right kidney prior study. Right ureteral calculi: None Visualized. Left renal calculi: None Visualized. Left ureteral calculi: None Visualized. Pelvic calcifications: None Visualized. Bowel gas pattern is unremarkable. No free air. No mass effects. IMPRESSION: 1. Right renal calculus.
== END | disposition home or self-care (01) ==
LOC: RADXRMAIN 09:20
PROVIDERS: ATTEND Urology
DX: N20.0 Calculus of kidney (principal)
CPT/HCPCS: 74018

== ENCOUNTER → 2020-07-23 | Outpatient (CLI) | payer OTHER ==
--- NOTE | 2020-07-23 13:21 | XR ---
EXAMINATION TYPE: XR KUB DATE OF EXAM: 07/23/2020 COMPARISON: 10/27/2016 INDICATION: Renal stones TECHNIQUE: Single view abdomen frontal supine view FINDINGS: There is a nonspecific bowel gas pattern. Psoas margins are normal. No organomegaly is present. Left hip prosthesis is present. There is a 1.7 cm calcification over the inferior pole right kidney which was present previously and appears smaller on the current exam. Cholecystectomy clips in the right upper quadrant. There is diff use increased sclerosis through the lumbar spine. IMPRESSION: 1. Previous right renal stone is smaller than the comparison currently measures 1.7 x 0.8 cm.
== END | disposition home or self-care (01) ==
LOC: RADXRMAIN 12:54
PROVIDERS: ATTEND Urology
DX: N20.0 Calculus of kidney (principal)
CPT/HCPCS: 74018

== ENCOUNTER → 2020-09-09 | Outpatient (CLI) | payer OTHER ==
--- NOTE | 2020-09-09 13:06 | XR ---
EXAMINATION TYPE: XR lumbar spine 2 or 3V DATE OF EXAM: 09/09/2020 CLINICAL HISTORY: Lifting injury with pain. TECHNIQUE: Frontal and lateral images of the lumbar spine are obtained. COMPARISON: Lumbar spine x-ray May 18, 2013. Outside CT August 21, 2019. FINDINGS: There are 5 lumbar type vertebral bodies redemonstrated. The lumbar spine redemonstrate s traightened alignment. Vertebral body heights are maintained. [id number] multilevel disc space narrowing and vacuum disc phenomenon. Moderate to severe multilevel anterior and lateral spurring. No acute displaced fracture. Facet arthropathy lower lumbar levels. Cholecystectomy clips redemonstrate d. Stable 10 mm calculus lower pole right kidney. Additional adjacent punctate 2 to 3 mm calculus red emonstrated. IMPRESSION: As above.
== END ==
LOC: RADXRMAIN 12:39
PROVIDERS: ATTEND Emergency Medicine
DX: S39.92XA Unspecified injury of lower back, initial encounter (principal); M51.36 Other intervertebral disc degeneration, lumbar region
CPT/HCPCS: 72100

== ENCOUNTER → 2021-01-08 | Outpatient (CLI) | payer OTHER | END | disposition home or self-care (01) ==

== ENCOUNTER → 2022-05-04 | Outpatient (CLI) | payer OTHER ==
--- NOTE | 2022-05-04 11:03 | XR ---
EXAMINATION TYPE: XR KUB DATE OF EXAM: 05/04/2022 COMPARISON: 07/23/2020 INDICATION: Renal calculus TECHNIQUE: Single view abdomen supine view FINDINGS: Fecal debris is within the colon. Nonspecific bowel gas is present. Psoas margins are normal. No organomegaly is present. Spondylosis as through the lumbar spine There is a 0.6 cm calcification overlying the right kidney. IMPRESSION: 1. There are 0.6 cm right renal stone
== END | disposition home or self-care (01) ==
LOC: RADXRMAIN 10:02
PROVIDERS: ATTEND Urology
DX: N20.0 Calculus of kidney (principal)
CPT/HCPCS: 74018